=== PATIENT | male | born 1965 | race Caucasian/White ===

== ENCOUNTER 2022-03-22 09:44 | Observation (INO) | payer BC, SELFPAY ==
[2022-03-22] VITALS (14 sets, daily range): BP systolic 104–126; BP diastolic 56–78; PULSE 59–134; RESP 12–22; TEMP 36.3–36.4; O2SAT 96–99; BMI 30.2
--- NOTE | ~2022-03-22 | XR_ITS ---
XR chest 1V portable DATE: 03/22/2022 10:37 INDICATION: Syncope today. Atrial fibrillation. TECHNIQUE: Portable AP chest views on 03/22/2022 at 1031) 1032 hours COMPARISON: None FINDINGS: There is pulmonary vascular redistribution which may indicate mild pulmonary venous hyperte nsion. Heart size appears within normal range. No pulmonary infiltrate or consolidation, pleural effu sara or pulmonary vascular congestion or pneumothorax is detected. IMPRESSION: Pulmonary vascular redistribution which may indicate mild pulmonary venous hypertension Otherwise no active cardiopulmonary disease Reviewed, dictated and finalized at location A. MODEL
--- NOTE | 2022-03-22 09:45 | ECG_ITS ---
Measurements Intervals [place] Rate: 150 P: [place]: 0 QRS: -41 QRSD: 113 T: 55 QT: 297 QTc: 470 Interpretive Statements ATRIAL FIBRILLATION WITH RAPID VENTRICULAR RESPONSE LEFT AXIS DEVIATION INTRAVENTRICULAR CONDUCTION DELAY CANNOT RULE OUT SEPTAL INFARCT, AGE INDETERMINATE ABNORMAL ECG NO PREVIOUS ECG AVAILABLE FOR COMPARISON Electronically Signed On 03-22-2022 12:11:57 SENIOR GL ACCOUNTANT by Anupam Arias D.O.
--- NOTE | 2022-03-22 09:55 | ED.SYNCOPE ---
HPI - Syncope General Chief Complaint: Syncope Stated Complaint: syncope palpitations Time Seen by Provider: 03/22/22 09:54 Source: patient Limitations: no limitations History of Present Illness HPI narrative: Patient is 57 years old white male presents with sudden onset of dizziness, lightheadedness, near syncope, palpitation and shortness of breath at the end of 1 hour workout. Patient been working out every other day for the last 3 months. Today is not different than before. History of hypertension, hyperlipidemia, currently on aspirin. He denies any history of smoking, drinking or using drugs. Patient also denies any headache or focal neurodeficit. Related Data Allergies Allergy/AdvReac Type Severity Reaction Status Date / Time No Known Allergies Allergy Verified 03/22/22 10:15 Review of Systems Review of Systems: All systems reviewed & are unremarkable except as noted in HPI and below Exam Narrative: General appearance: Well-developed, well-nourished Skin: Normal color Head: Normocephalic, nontraumatic Eyes: Clear conjunctiva ENT: Oropharynx normal, ears normal, nose normal Neck: Supple, nontender Chest and respiratory: Airway patent, no respiratory distress, no accessory muscle use Heart: Irregular irregularity, tachycardia Abdomen: Soft, nontender, no organomegaly, quiet bowel sounds Vascular: Normal peripheral pulses, normal capillary refill. Musculoskeletal: Normal range of motion, nontender back Neurologic: Alert and oriented ?3, UTILIZATION REVIEWER is normal as tested, no gross motor deficit Course Vital Signs Vital signs: Vital Signs Pulse Rate 98 03/22/22 10:05 Respiratory Rate 22 H 03/22/22 10:05 Pulse Rate 134 H 03/22/22 11:34 Respiratory Rate 18 03/22/22 11:34 Blood Pressure 112/78 03/22/22 11:34 Pulse Oximetry 99 03/22/22 11:34 MDM - Syncope Differential Diagnosis Differential diagnosis: Likely syncope due to orthostatic hypotension, dehydration and other (Tachyarrhythmia, hypothyroidism) Lab Data Result diagrams: 03/22/22 10:15 03/22/22 10:14 Labs: Lab Results 03/22/22 03/22/22 03/22/22 Range/Units 10:14 10:14 10:14 WBC (4.5-10.0) K/mm3 RBC (4.6-6.20) M/mm3 Hgb (14.0-18.0) g/dL Hct (42.0-52.0) % MCV (80-100) fl MCH (26-34) pg MCHC (32-36) g/dl RDW (11.5-14.5) % Plt Count (150-375) k/mm3 MPV (7.4-10.4) fl Immature Gran % (Auto) (0-0.5) % Neut % (Auto) (45.5-73.1) % Lymph % (Auto) (18.3-44.2) % [place] % (Auto) (2.6-8.5) % Eos % (Auto) (0-4.4) % Baso % (Auto) (0.2-1.2) % Lymph # (Auto) (0.9-3.2) K/mm3 [place] # (Auto) (0.1-0.6) K/mm3 Eos # (Auto) (0-0.3) K/mm3 Baso # (Auto) (0.0-0.1) K/mm3 Abs Immat Gran (auto) (0.00-0.031) K/mm3 Absolute Neuts (auto) (1.3-6.7) K/mm3 Absolute Nucleated RBC (0.0-0.012) K/mm3 Nucleated RBC % (0.0-0.2) % PT 13.0 (11.1-14.7) Seconds INR 1.0 APTT 27.1 (22.3-36.8) SECONDS Sodium 140 (137-145) mmol/L Potassium 4.3 (3.4-5.0) mmol/L Chloride 101 (98-107) mmol/L Carbon Dioxide 23 (22-30) mmol/L Anion Gap 16 (8-16) mmol/L BUN 28 H (9-20) mg/dL Creatinine 1.30 (0.7-1.3) mg/dL Estim Creat Clear Calc Not Reportable Estimated GFR 57 L (59 - ) Glucose 123 H (65-110) mg/dL Calcium 10.0 (8.4-10.2) mg/dL Total Bilirubin 0.8 (0.2-1.3) mg/dL AST 44 (17-59) U/L ALT 44 (6-50) U/L Alkaline Phosphatase 139 H (38-126) U/L Troponin I (0.000-0.034) ng/mL NT-Pro-B Natriuret Pep 34 (5-100) pg/mL Total Protein 9.0 H (6.3-8.2) g/dL [place]
[2022-03-22] MEDS: dilTIAZem HCl INJ 25 MG/5 ML VIAL 10 MG IV PUSH (10:19)
[2022-03-22] MEDS: dilTIAZem 100 MG/100 ML 100 MG/100 ML BAG IV CONT (10:22)
[2022-03-22 10:44] LABS: Basophils Absolute Auto 0.1 K/mm3 (0.0-0.1); Eosinophils Absolute Auto 0.1 K/mm3 (0-0.3); Eosinophils Percent Auto 1.5 % (0-4.4); Hematocrit 48.9 % (42.0-52.0); Hemoglobin 16.8 g/dL (14.0-18.0); Immature Granulocyte Absolute 0.01 K/mm3 (0.00-0.031); Immature Granulocyte Percent A 0.2 % (0-0.5); Lymphocytes Percent Auto 24.8 % (18.3-44.2); Mean Corpuscular HGB Conc 34.4 g/dl (32-36); Mean Corpuscular Hemoglobin 32.1 pg (26-34); Mean Corpuscular Volume 93.5 fl (80-100); Mean Platelet Volume 8.6 fl (7.4-10.4); Monocytes Absolute Auto 0.5 K/mm3 (0.1-0.6); Monocytes Percent Auto 7.9 % (2.6-8.5); Neutrophils Absolute Auto 3.9 K/mm3 (1.3-6.7); Neutrophils Percent Auto 64.6 % (45.5-73.1); Platelet Count Result 208 k/mm3 (150-375); Red Blood Count 5.23 M/mm3 (4.6-6.20); Red Cell Distribution Width 12.4 % (11.5-14.5); White Blood Count 6.1 K/mm3 (4.5-10.0)
[2022-03-22 10:45] LABS: Partial Thromboplastin Time 27.1 SECONDS (22.3-36.8)
[2022-03-22 10:48] LABS: Alanine Aminotransferase 44 U/L (6-50); Albumin Level 5.2 g/dL (3.5-5.1); Alkaline Phosphatase 139 U/L (38-126); Anion Gap 16 mmol/L (8-16); Aspartate Amino Transferase 44 U/L (17-59); Bilirubin,Total 0.8 mg/dL (0.2-1.3); Blood Urea Nitrogen 28 mg/dL (9-20); Carbon Dioxide 23 mmol/L (22-30); Chloride 101 mmol/L (98-107); Estimated Glomerular Filt Rate 57; Glucose 123 mg/dL (65-110); Potassium 4.3 mmol/L (3.4-5.0); Sodium 140 mmol/L (137-145)
[2022-03-22 10:55] LABS: NT Pro B Type Natriuretic Pept 34 pg/mL (5-100)
[2022-03-22 11:10] LABS: Troponin I < 0.012 ng/mL (0.000-0.034)
[2022-03-22 11:22] LABS: Appearance Urine Clear (Clear); Bilirubin Urine Negative (Negative); Blood Urine Negative (Negative); Color Urine Yellow (Yellow); Glucose Urine UA Negative (Negative); Ketones Urine 1+ mg/dL (Negative); Leukocyte Esterase Ur Negative LEU/UL (Negative); Nitrate Urine Negative (Negative); Protein Urine 2+ mg/dL (Negative); Specific Grav Ur 1.025 (1.001-1.035); Urobilinogen Urine 0.2 mg/dL (<2.0); pH Urine 5.5 (5.0-9.0)
[2022-03-22 11:38] LABS: Mucus Urine Rare /lpf; Squamous Epithelial Cell Urine Rare /hpf (Few)
[2022-03-22 11:45] LABS: Add Urine Microscopic? YES
[2022-03-22] MEDS: ENOXAPARIN 100 MG/ML SYRINGE SUB-Q ×2 (11:56→21:23)
--- NOTE | 2022-03-22 14:00 | PM.IMHP ---
H&P: HPI History of Present Illness Date/Time: 03/22/22 14:00 Chief Complaint: Palpitations. Narrative: This is a very pleasant 57-year-old male with hypertension and dyslipidemia who presented to the emergency department from home for evaluation of palpitations. He exercises regularly and this morning he completed his usual routine of walking to the gym, lifting weights, and walking home. His workout was unremarkable however he does admit that he was feeling a bit more fatigued today than usual. On the 20 minute walk home he had a brief period of time where he began to feel weak, lightheaded, and his vision seemed to be going to dim. He stopped and rested for a few seconds, his symptoms improved, and he continued his walk home. Once he got home he checked his pulse and reports that it was quite variable and at that time he began to experience palpitations. On arrival to the ER he was found to be in rapid atrial fibrillation for which he was started on a diltiazem drip; he has since converted back to a normal sinus rhythm. He estimates that he was in AFib for approximately 5 hours. About 3 to 4 years ago he had a similar episode for which he was evaluated at an ER just outside of [place]. His symptoms did not last long and he was not noted to be in a cardiac dysrhythmia at that time. Everything checked out and he was discharged home. He had a stress test done as an outpatient which was abnormal and prompted a cardiac catheterization which was normal, per patient report. He has not had any issues since that time. Prior to today he has no known history of atrial fibrillation. He does not drink caffeine or alcohol on a daily basis and denies drinking pre workout and energy drinks. He has no concerns for sleep apnea though he does nap at times. No known history of thyroid disease. He has not had exertional chest pain or shortness of breath. Review of Systems Review of Systems: Twelve systems were reviewed and are negative except for as per HPI. [facility] Past Medical History Medical History (Updated 03/22/22 @ 21:26 by Sol Dumont PA-C) Dyslipidemia Hypertension Surgical History Surgical History (Updated 03/22/22 @ 21:26 by Sol Dumont PA-C) History of cardiac catheterization Clear cardiac catheterization following abnormal stress test. Family History Family History Mother CAD (coronary artery disease) Father S/P CABG x 3 S/P internal cardiac defibrillator procedure Social History Social History (Updated 03/22/22 @ 21:27 by Sol Dumont PA-C) Social History: Surrogate medical decision maker: Beth Bergman, . Code status: Full code. Smoking status: Never smoker Alcohol intake: never Substance use: never Lack of Transportation: No Lack of Food: Never True Current Housing: I Have Housing Concerned About Future Housing: No Difficulty Paying Gas/Electric Bills: No Difficulty Paying for Meds: No Currently Unemployed: No Education: Master's Degree or Higher Difficulty w/ Childcare or Family Care: YES Additional living arrangements comments: The patient is recently moved to the area from just outside of [place]. Additional occupation/education comments: Retired software. Spiritual care concerns: No Meds Home Medications and Allergies Home Medications Medication Instructions Recorded Confirmed Type aspirin 81 mg capsule 81 mg PO DAILY 03/22/22 03/22/22 History lisinopril 20 mg tablet 20 mg PO DAILY 03/22/22 03/22/22 History rosuvastatin 40 mg tablet 40 mg PO HS 03/22/22 03/22/22 History Allergies Allergy/AdvReac Type Severity Reaction Status Date / Time No Known Allergies Allergy Verified 03/22/22 10:15 Vital Signs Vital Signs - 24 hr 03/22/22 10:22 03/22/22 10:41 03/22/22 10:05 Pulse Rate 118 H 109 H 98 Respiratory Rate 18 22 H Blood Pressure 116/68 116/68 Pulse Oximetry
--- NOTE | 2022-03-22 14:11 | ECHO_ITS ---
Patient Info Name: Tal Bergman Age: 57 years : 1965 Gender: Male Ht: 73 in Wt: 220 lbs BSA: 2.29 m2 HR: 65 bpm BP: 106 / 75 mmHg Exam Date: 03/22/2022 4:27 PM Exam Location: [facility] Patient Status: Outpatient Admit Date: 03/22/2022 Staff Ordering Physician: Sol Dumont PA-C Mowing Machine Operator: Sourav Rivera RDCS Attending Provider: Chino Winslow MD Referring Physician: Julia FINE; Exam Type: CA echo doppler color flow Study Info Indications - atrial fibrillation Complete two-dimensional, color flow and Doppler transthoracic echocardiogram is performed. Summary 1. Complete two-dimensional, color flow and Doppler transthoracic echocardiogram is performed. 2. Left ventricular chamber dimension is normal. 3. Left ventricular systolic function is normal, estimated at 55-60%. 4. The left ventricular diastolic function is grade I diastolic dysfunction. 5. E/e' 5 is not elevated. 6. Left atrial chamber dimension is mildly enlarged. 7. There is mild aortic valve sclerosis. 8. There is mild mitral valve regurgitation. Left Ventricle E/e' 5 is not elevated. Left ventricular chamber dimension is normal. Left ventricular systolic function is normal, estimated at 55-60%. The left ventricular diastolic function is grade I diastolic dysfunction. Right Ventricle Right ventricular systolic function is normal and with normal TAPSE 2.0 cm. Right ventricular chamber dimension is normal. Left Atria Left atrial chamber dimension is mildly enlarged. Right Atria Right atrial chamber dimension is normal. Aortic Valve The aortic valve is trileaflet. There is mild aortic valve sclerosis. There is no aortic valve stenosis. There is no aortic valve regurgitation. Pulmonic Valve There is no pulmonic regurgitation. Mitral Valve There is no mitral valve stenosis. There is mild mitral valve regurgitation. Tricuspid Valve There is no tricuspid valve regurgitation. Pericardium/Pleural There is no pericardial effusion. Inferior Vena Cava Normal inferior vena cava with >50% collapse upon inspiration consistent with normal right atrial pressure, 5 mmHg. Aorta The aortic root size at the sinus of Valsalva is normal. Left Ventricular Outflow Tract Name Value Normal LVOT 2D LVOT Diameter 2.2 cm LVOT Doppler LVOT Peak Gradient 7 mmHg LVOT Mean Gradient 4 mmHg LVOT VTI 27 cm LVOT VTI/AV VTI Ratio 0.9 LVOT Stroke Volume 105 ml LVOT CO 6.9 l/min LVOT CI 3.0 l/min/m2 Mitral Valve Name Value Normal MV Doppler MV Peak Gradient 2 mmHg MV Mean Gradient 1 mmH
--- NOTE | 2022-03-22 14:21 | ADMGEN ---
This patient, Tal Bergman, was admitted to IMU Room 209-01 at 1411. Patient/family oriented to hospital policies and general routines including ID bracelet, bed and alarms, visiting hours, pain management, procedures, bathroom and other care routines, personal items, smoking policy, room service/diet, and visiting hours. Information on how to activate the Rapid Response Team has been discussed. Patient/Family are encouraged to report perceived risks to care and to ask questions if they do not understand what they are told or what they should do.
--- NOTE | 2022-03-22 14:56 | PM.CNCAR ---
Assessment and Plan Assessment and plan (1) Atrial fibrillation with rapid ventricular response: Code(s): I48.91 - Unspecified atrial fibrillation Status: Acute Assessment and Plan: New onset. Could be due to anxiety or over stressed from physical activity. Back in sinus rhythm. [id number] 1. On Lovenox now, but may go home on aspirin EC 325 mg daily. Start Toprol XL 25 mg daily to decrease risk of recurrence. Check echo for any pathology including left atrial size. Check TSH. If echo is OK, may d/c home and f/u with me in 1-2 weeks. (2) Hypertension: Code(s): I10 - Essential (primary) hypertension Status: Acute Assessment and Plan: Stable. If Toprol would decrease BP too much, then decrease Lisinopril dose to 5 mg daily. (3) Dyslipidemia: Code(s): E78.5 - Hyperlipidemia, unspecified Status: Acute Assessment and Plan: On Rosuvastatin. History of Present Illness History of Present Illness Consult date/time: 03/22/22 14:56 Reason For Visit: new onset a fib with rvr, near syncope Narrative: 57 yr old man presented to ER with palpitations. He has a history of hypertension and dyslipidemia. He exercises regularly with some vigorous activity. This morning after working out at 7 am he felt dizziness, sob, palpitations. He came to ER and noted to be in rapid atrial fibrillation. He was given Diltiazem and has since converted back to sinus rhythm. It lasted about 5 hours. He does not believe he has RICH but does take a nap at times. Denies chest pain, orthopnea, PND, edema. Review of Systems Review of Systems: All systems reviewed & are unremarkable except as noted in HPI and below Constitutional: Constitutional: Reports as per HPI, Denies chills and Denies fever(s) Cardiovascular: Cardiovascular: Reports as per HPI, Reports irregular heart rhythm, Denies leg edema and Reports lightheadedness Respiratory: Respiratory: Reports as per HPI and Reports dyspnea Gastrointestinal: Gastrointestinal: Reports as per HPI and Denies abdominal pain Genitourinary: Genitourinary: Reports as per HPI and Denies dysuria Musculoskeletal: Musculoskeletal: Reports as per HPI Neurologic: Reports as per HPI, Reports dizziness and Denies syncope [facility] Family History Family History (Updated 03/22/22 @ 14:26 by Alexandra Plaza RNLP) Mother CAD (coronary artery disease) Father S/P CABG x 3 S/P internal cardiac defibrillator procedure Social History Social History Smoking status: Never smoker Lack of Transportation: No Lack of Food: Never True Current Housing: I Have Housing Concerned About Future Housing: No Difficulty Paying Gas/Electric Bills: No Difficulty Paying for Meds: No Currently Unemployed: No Education: Master's Degree or Higher Difficulty w/ Childcare or Family Care: YES Spiritual care concerns: No Meds Home Medications and Allergies Home Medications Medication Instructions Recorded Confirmed Type aspirin 81 mg capsule 81 mg PO DAILY 03/22/22 03/22/22 History lisinopril 20 mg tablet 20 mg PO DAILY 03/22/22 03/22/22 History rosuvastatin 40 mg tablet 40 mg PO HS 03/22/22 03/22/22 History Allergies Allergy/AdvReac Type Severity Reaction Status Date / Time No Known Allergies Allergy Verified 03/22/22 10:15 Vital Signs Vital Signs - 24 hr 03/22/22 10:22 03/22/22 10:41 03/22/22 10:05 Pulse Rate 118 H 109 H 98 Respiratory Rate 18 22 H Blood Pressure 116/68 116/68 Pulse Oximetry 97 03/22/22 11:00 03/22/22 11:01 03/22/22 11:15 Pulse Rate 93 108 H 95 Respiratory Rate 20 13 15 Blood Pressure 104/56 L Pulse Oximetry 03/22/22 11:34 03/22/22 13:00 Pulse Rate 134 H 100 Respiratory Rate 18 12 Blood Pressure 112/78 106/75 Pulse Oximetry 99 Exam Const: General: cooperative, healthy appearing and comfortable Resp: Auscultation: clear to auscultat
[2022-03-22 16:34] LABS: Troponin I 0.021 ng/mL (0.000-0.034)
[2022-03-22] MEDS: ROSUVASTATIN 10 MG TABLET 40 MG PO (21:22)
--- NOTE | 2022-03-22 23:12 | PCRCNOTE ---
RT explained to pt that DR had ordered a sleep study for the evening. Upon explaining procedure, pt stated that he did not believe he has sleep apnea and does not need to participate in study. RN notified.
[2022-03-23] VITALS (9 sets, daily range): BP systolic 109–133; BP diastolic 66–79; PULSE 53–75; RESP 18–20; TEMP 36.4–36.7; O2SAT 97–99
--- NOTE | 2022-03-23 07:55 | PM.PNCARD ---
Progress Note: A&P Assessment and Plan (1) Atrial fibrillation with rapid ventricular response: Code(s): I48.91 - Unspecified atrial fibrillation Status: Acute Assessment and Plan: New onset. Could be due to anxiety or over stressed from physical activity. Back in sinus rhythm. [id number] 1. Start aspirin EC 325 mg daily. 03/22/22 Echo:EF 55-60%, grade I diastolic dysfunction (E/e' 5), mild LAE, mild MR. Start Toprol XL 12.5 mg daily to decrease risk of recurrence. May d/c home and f/u with me in 1-2 weeks. (2) Hypertension: Code(s): I10 - Essential (primary) hypertension Status: Acute Assessment and Plan: Stable. Due to starting Toprol XL, decrease Lisinopril dose to 5 mg daily. (3) Dyslipidemia: Code(s): E78.5 - Hyperlipidemia, unspecified Status: Acute Assessment and Plan: On Rosuvastatin. Subjective Date/time seen: 03/23/22 07:55 Interval history: He feels great. No chest pain or sob. Exam Const: General: cooperative, healthy appearing and comfortable Orientation/consciousness: oriented to person, oriented to place and oriented to time Resp: Auscultation: clear to auscultation bilaterally, no crackles, no rales, no rhonchi and no wheezes Cardio: Rate: regular rate Heart sounds: no murmurs Peripheral pulses: dorsalis pedis present Neuro: General: oriented to person, oriented to place and oriented to time Extrem: Right lower extremity: no edema Left lower extremity: no edema Objective Data Vital Signs Vital Signs: Vital Signs - 24 hr 03/22/22 10:22 03/22/22 10:41 03/22/22 10:05 Temperature Pulse Rate 118 H 109 H 98 Respiratory Rate 18 22 H Blood Pressure 116/68 116/68 Pulse Oximetry 97 Oxygen Delivery 03/22/22 11:00 03/22/22 11:01 03/22/22 11:15 Temperature Pulse Rate 93 108 H 95 Respiratory Rate 20 13 15 Blood Pressure 104/56 L Pulse Oximetry Oxygen Delivery 03/22/22 11:34 03/22/22 13:00 03/22/22 14:57 Temperature 97.3 F L Pulse Rate 134 H 100 69 Respiratory Rate 18 12 16 Blood Pressure 112/78 106/75 118/76 Pulse Oximetry 99 98 Oxygen Delivery 03/22/22 16:00 03/22/22 16:00 03/22/22 16:00 Temperature 97.5 F L Pulse Rate 66 67 Respiratory Rate 16 Blood Pressure 114/76 Pulse Oximetry 99 Oxygen Delivery Room Air 03/22/22 18:00 03/22/22 20:00 03/22/22 20:00 Temperature 97.6 F Pulse Rate 66 70 61 Respiratory Rate 16 Blood Pressure 126/71 Pulse Oximetry 96 Oxygen Delivery 03/22/22 22:00 03/22/22 23:12 03/23/22 00:00 Temperature 97.6 F Pulse Rate 59 L 58 L Respiratory Rate 18 Blood Pressure 109/66 Pulse Oximetry 97 98 Oxygen Delivery Room Air 03/23/22 00:00 03/23/22 00:00 03/23/22 02:00 Temperature Pulse Rate 60 58 L 56 L Respiratory Rate 18 Blood Pressure Pulse Oximetry 98 Oxygen Delivery Room Air 03/23/22 04:00 03/23/22 04:00 03/23/22 04:00 Temperature Pulse Rate 56 L 56 L 54 L Respiratory Rate 18 Blood Pressure Pulse Oximetry 98 Oxygen Delivery Room Air 03/23/22 05:52 03/23/22 05:54 03/23/22 05:56 Temperature 97.6 F Pulse Rate 53 L 53 L 62 Respiratory Rate 18 Blood Pressure 114/75 Pulse Oximetry 97 Oxygen Delivery 03/23/22 07:52 Temperature 98.1 F Pulse Rate 63 Respiratory Rate 20 Blood Pressure 133/79 Pulse Oximetry 99 Oxygen Delivery Intake/Output Intake/Output: Intake & Output 03/20/22 03/21/22 03/22/22 03/23/22 23:59 23:59 23:59 23:59 Intake Total 540 900 Balance 540 900 Meds/Results Medications: Active Medications Generic Name Dose Route Start Last Admin Trade Name Freq PRN Reason Stop Dose Admin Acetaminophen 650 mg 03/22/22 12:51 Acetaminophen 325 Mg Tablet PO Q4H PRN Mild Pain (1-3) or Fever Aspirin 325 mg 03/23/22 09:00 Aspirin 325 Mg Enteric Tablet PO [facility] Enoxaparin Sodium 40 mg 03/23/22 09:00 En
[2022-03-23] MEDS: ASPIRIN 325 MG ENTERIC TABLET PO (08:30)
[2022-03-23] MEDS: lisinopriL 5 MG TABLET PO (08:31)
[2022-03-23] MEDS: METOPROLOL SUCCINATE EXT REL 12.5 MG TABCR PO (08:31)
--- NOTE | 2022-03-23 10:26 | PM.DS ---
DS: Admitting Diagnosis Discharge Date 03/23/2022 Admitting Diagnosis AFib with RVR DS: Discharge Diagnosis Discharge Diagnosis (1) Atrial fibrillation with rapid ventricular response: Code(s): I48.91 - Unspecified atrial fibrillation Status: Acute (2) Near syncope: Code(s): R55 - Syncope and collapse Status: Acute (3) Hypertension: Code(s): I10 - Essential (primary) hypertension Status: Acute (4) Dyslipidemia: Code(s): E78.5 - Hyperlipidemia, unspecified Status: Acute DS: Summary Hospital Course Hospital Course: # New onset atrial fibrillation although it sounds as though he may have had a brief episode several years ago. Precipitating etiology not clear at this time. There was no murmur noted on exam.? He denies concerns for sleep apnea though he does nap on occasion. He does not drink much in the way of alcohol or caffeine. 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 He is now back into a normal sinus rhythm. After pain was consulted. Chads Vasc score is 1. Started on aspirin 325 mg daily. And oral metoprolol. Echocardiogram was ordered which short normal ejection fraction with no significant valvular abnormality. Apnea link was ordered however was refused by the patient # Near syncope (Acute) Likely related to above.? Symptoms were brief and he has not had similar symptoms with physical activity. PE unlikely. #Hypertension (Acute) Blood pressures have been stable.? We will need to monitor these closely as he is being started on metoprolol in addition to his usual lisinopril 20 mg daily to help prevent recurrence of atrial fibrillation. Lower lisinopril to 5 mg daily due to blood pressure low normal and starting metoprolol as well # dyslipidemia: Continue statin; LFTs within normal limits. Time Spent with Patient Time attestation: Total time spent providing and/or coordinating discharge services: 30 minutes Exam Narrative: GENERAL: The patient is well developed, not in acute distress HEENT: Nonicteric sclerae, PERRLA, EOMI. Oropharynx clear. Moist mucous membranes. Conjunctivae appear well perfused. CHEST: Chest wall is nontender. HEART: Regular rate and rhythm without murmur, rubs, or gallops LUNGS: Clear to auscultation bilaterally. no respiratory distress ABDOMEN: Soft, positive bowel sounds, non-tender, no organomegaly. SKIN: No rash, no excessive bruising, petechiae, or purpura. NEUROLOGIC: Cranial nerves II-XII intact, alert and oriented x 3, no gross motor deficits EXTREMITIES: no edema, cyanosis or clubbing DS: Data Data Completed and Pending Completed studies during hospitalization: Exam Type: ? ? CA echo doppler color flow Study Info Indications ?? ? - atrial fibrillation Complete two-dimensional, color flow and Doppler transthoracic echocardiogram is performed. Account #: ? ? [id number] Summary ? 1. Complete two-dimensional, color flow and Doppler transthoracic echocardiogram is performed. ? 2. Left ventricular chamber dimension is normal. ? 3. Left ventricular systolic function is normal, estimated at 55-60%. ? 4. The left ventricular diastolic function is grade I diastolic dysfunction. ? 5. E/e' 5 is not elevated. ? 6. Left atrial chamber dimension is mildly enlarged. ? 7. There is mild aortic valve sclerosis. ? 8. There is mild mitral valve regurgitation. Left Ventricle ? E/e' 5 is not elevated. ? Left ventricular chamber dimension is normal. ? Left ventricular systolic function is normal, estimated at 55-60%. ? The left ventricular diastolic function is grade I diastolic dysfunction. Right Ventricle ? Right ventricular systolic function is normal and with normal TAPSE 2.0 cm. ? Right ventricular chamber dimension is normal. Left Atria ? Left atrial chamber dimension is mildly enlarged. Right Atria ? Right atrial chamb
== END 2022-03-23 10:47 | disposition home or self-care (01) ==
LOC: ANHED 12:27 → ANHIMU 13:39
PROVIDERS: Internal Medicine Cardiovascular Disease; Admitting Provider Internal Medicine; Emergency Provider Emergency Medicine; Visit Provider Internal Medicine
DX: I48.91 Unspecified atrial fibrillation (principal); R55 Syncope and collapse; I11.9 Hypertensive heart disease without heart failure; E78.5 Hyperlipidemia, unspecified; R00.2 Palpitations; R94.31 Abnormal electrocardiogram [ECG] [EKG]; R42 Dizziness and giddiness; R06.02 Shortness of breath; Z79.82 Long term (current) use of aspirin; Z82.49 Family history of ischemic heart disease and other diseases of the circulatory system
CPT/HCPCS: 36415; 71045; 80053; 81001; 83880; 84443; 84484; 85025; 85610; 85730; 93005; 93306; 96365; 96366; 96372; 99285; A9270; G0378; J1650

== ENCOUNTER 2022-04-01 11:33 | Emergency (ER) | payer BC, SELFPAY ==
[2022-04-01] VITALS (12 sets, daily range): BP systolic 131–155; BP diastolic 72–90; PULSE 62–90; RESP 11–21; TEMP 36.9; O2SAT 97–99
--- NOTE | ~2022-04-01 | XR_ITS ---
XR chest 2V DATE: 04/01/2022 12:19 INDICATION: New diagnosis of atrial fibrillation. Tachycardia. TECHNIQUE: PA and lateral views COMPARISON: 03/22/2022 portable AP chest FINDINGS: Normal heart size. No hilar or mediastinal enlargement. No pulmonary infiltrate or consolid ation, pleural effusion or pulmonary vascular congestion or pneumothorax. Included skeletal structures are unremarkable. IMPRESSION: No active cardiopulmonary disease Reviewed, dictated and finalized at location A. L SHOP SUPERVISOR
--- NOTE | 2022-04-01 11:33 | ECG_ITS ---
Measurements Intervals [place] Rate: 85 P: 33 IN: 173 QRS: -29 QRSD: 129 T: 35 QT: 391 QTc: 465 Interpretive Statements SINUS RHYTHM INTRAVENTRICULAR CONDUCTION DELAY CANNOT RULE OUT SEPTAL INFARCT, AGE INDETERMINATE BASELINE ARTIFACT- I, III, AVL ABNORMAL ECG COMPARED TO ECG 03/22/2022 09:51:32 SINUS RHYTHM NOW PRESENT Electronically Signed On 04-01-2022 11:38:36 OXIDATION ENGINEER by Anupam Arias D.O.
[2022-04-01 11:54] LABS: Basophils Absolute Auto 0.1 K/mm3 (0.0-0.1); Basophils Percent Auto 0.7 % (0.2-1.2); Eosinophils Absolute Auto 0.2 K/mm3 (0-0.3); Eosinophils Percent Auto 1.8 % (0-4.4); Hematocrit 46.8 % (42.0-52.0); Hemoglobin 15.4 g/dL (14.0-18.0); Immature Granulocyte Absolute 0.03 K/mm3 (0.00-0.031); Immature Granulocyte Percent A 0.4 % (0-0.5); Lymphocytes Absolute Auto 2.02 K/mm3 (0.9-3.2); Lymphocytes Percent Auto 24.4 % (18.3-44.2); Mean Corpuscular HGB Conc 32.9 g/dl (32-36); Mean Corpuscular Hemoglobin 32.3 pg (26-34); Mean Corpuscular Volume 98.1 fl (80-100); Mean Platelet Volume 8.7 fl (7.4-10.4); Monocytes Absolute Auto 0.7 K/mm3 (0.1-0.6); Monocytes Percent Auto 8.3 % (2.6-8.5); Neutrophils Absolute Auto 5.3 K/mm3 (1.3-6.7); Neutrophils Percent Auto 64.4 % (45.5-73.1); Platelet Count Result 195 k/mm3 (150-375); Red Blood Count 4.77 M/mm3 (4.6-6.20); Red Cell Distribution Width 12.5 % (11.5-14.5); White Blood Count 8.3 K/mm3 (4.5-10.0)
[2022-04-01 12:04] LABS: Alanine Aminotransferase 52 U/L (6-50); Albumin Level 4.9 g/dL (3.5-5.1); Alkaline Phosphatase 113 U/L (38-126); Anion Gap 11 mmol/L (8-16); Aspartate Amino Transferase 42 U/L (17-59); Bilirubin,Total 0.7 mg/dL (0.2-1.3); Blood Urea Nitrogen 24 mg/dL (9-20); Calcium 9.5 mg/dL (8.4-10.2); Carbon Dioxide 26 mmol/L (22-30); Chloride 102 mmol/L (98-107); Estimated CRCL calculation 90 ml/min; Estimated Glomerular Filt Rate > 60; Glucose 129 mg/dL (65-110); Lipase 141 U/L (23-300); Potassium 4.1 mmol/L (3.4-5.0); Sodium 139 mmol/L (137-145)
[2022-04-01 12:05] LABS: Prothrombin Time 12.6 Seconds (11.1-14.7)
[2022-04-01 12:06] LABS: Partial Thromboplastin Time 25.6 SECONDS (22.3-36.8)
[2022-04-01 12:16] LABS: Troponin I < 0.012 ng/mL (0.000-0.034)
--- NOTE | 2022-04-01 12:45 | ED.ARRPALP ---
HPI - Arrhythmia/Palpitations General Chief Complaint: Arrhythmia/Palpitations Stated Complaint: afib Time Seen by Provider: 04/01/22 11:40 History of Present Illness HPI narrative: Patient is a 57-year-old male who presents ER with concerns for being in atrial fibrillation. Was given new diagnosis of atrial fibrillation a little over a week ago. He is being seen by Dr. Umaña. He is on metoprolol. Reports he felt a little flushed in his leg and then starting about how he had been hospitalized and then felt his heart was racing. His watch said it was in the 110s to 20s. It only lasted for couple minutes and got better after he told his family he was feeling little off. No chest pain or pressure. He was mildly shortness of breath at that time. Patient does report history of anxiety and that it may have been anxiety attack as well. Related Data Home Medications Medication Instructions Recorded Confirmed rosuvastatin 40 mg tablet 40 mg PO HS 03/22/22 03/22/22 Allergies Allergy/AdvReac Type Severity Reaction Status Date / Time No Known Allergies Allergy Verified 03/22/22 10:15 Review of Systems Review of Systems: All systems reviewed & are unremarkable except as noted in HPI and below Constitutional: Constitutional: Denies chills and Denies fever(s) ENT: Denies nasal congestion and Denies sore throat Cardiovascular: Cardiovascular: Denies chest pain, Reports rapid heart rate and Denies radiating jaw, neck or arm pain Respiratory: Respiratory: Denies cough, Reports dyspnea and Denies wheezing Gastrointestinal: Gastrointestinal: Denies abdominal pain, Denies nausea and Denies vomiting Neurologic: Denies syncope and Denies headache(s) Psychiatric: Psychiatric: Reports anxiety PMFSH Past Medical History Medical History (Updated 04/01/22 @ 12:48 by Isiah Hughes MD) Dyslipidemia Hypertension Surgical History Surgical History (Updated 03/22/22 @ 21:26 by Sol Dumont PA-C) History of cardiac catheterization Clear cardiac catheterization following abnormal stress test. Family History Family History Mother CAD (coronary artery disease) Father S/P CABG x 3 S/P internal cardiac defibrillator procedure Social History Social History (Updated 03/22/22 @ 21:27 by Sol Dumont PA-C) Social History: Surrogate medical decision maker: Beth Bergman, . Code status: Full code. Smoking status: Never smoker Alcohol intake: never Substance use: never Lack of Transportation: No Lack of Food: Never True Current Housing: I Have Housing Concerned About Future Housing: No Difficulty Paying Gas/Electric Bills: No Difficulty Paying for Meds: No Currently Unemployed: No Education: Master's Degree or Higher Difficulty w/ Childcare or Family Care: YES Additional living arrangements comments: The patient is recently moved to the area from just outside of [place]. 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 HEAD: Normocephalic, atraumatic. CHEST: Clear to auscultation. No respiratory distress. HEART: Regular rate and rhythm. Normal peripheral pulses. ABDOMEN: Soft, nontender, nondistended. EXTREMITIES: Normal range of motion. No edema. SKIN: Warm, dry, no rash. NEURO: Alert and oriented x3. PSYCH: Normal mood and affect. Course Course Emergency Course: Patient resting comfortably. No arrhythmia on EKG or on cardiac monitoring. Labs unremarkable. Suspect very brief episode of A. fib versus what was more likely an anxiety attack. Patient feels comfortable discharge home. Has follow-up this week with Dr. Arias. Vital Signs Vital signs: Vital Signs Temperature 98.5 F 04/01/22 11:36 Pulse Rate 86 04/01/22 11:36 Respiratory Rate 16 04/01/22 11:36 B
== END 2022-04-01 13:35 | disposition home or self-care (01) ==
PROVIDERS: Emergency Provider Emergency Medicine
DX: R00.2 Palpitations (principal); F41.9 Anxiety disorder, unspecified; E78.5 Hyperlipidemia, unspecified; I10 Essential (primary) hypertension; I48.91 Unspecified atrial fibrillation; I45.9 Conduction disorder, unspecified; R94.31 Abnormal electrocardiogram [ECG] [EKG]
CPT/HCPCS: 36415; 71046; 80053; 83690; 84484; 85025; 85610; 85730; 93005; 99284

== ENCOUNTER 2022-05-19 10:45 | Emergency (ER) | payer BC, SELFPAY ==
[2022-05-19] VITALS (23 sets, daily range): BP systolic 114–134; BP diastolic 78–95; PULSE 79–145; RESP 11–19; TEMP 36.8; O2SAT 96–99
--- NOTE | ~2022-05-19 | XR_ITS ---
EXAMINATION: XR chest 1V portable INDICATION: Atrial fibrillation with RVR TECHNIQUE: Portable AP chest at 1107 hours COMPARISON: 04/01/2022 FINDINGS: The lungs are free of acute opacities. No pleural effusion or pneumothorax. The cardiomedia stinal silhouette is normal. IMPRESSION: 1. No acute cardiopulmonary abnormality. Reviewed, dictated and finalized at location B. WARE ASSEMBLER
--- NOTE | 2022-05-19 10:47 | ECG_ITS ---
Measurements Intervals [place] Rate: 141 P: [place]: 0 QRS: -37 QRSD: 117 T: 59 QT: 314 QTc: 481 Interpretive Statements ATRIAL FIBRILLATION WITH RAPID VENTRICULAR RESPONSE LEFT AXIS DEVIATION INTRAVENTRICULAR CONDUCTION DELAY CANNOT RULE OUT SEPTAL INFARCT, AGE INDETERMINATE BORDERLINE ST-T WAVE ABNORMALITY- HIGH LATERAL LEADS ABNORMAL ECG COMPARED TO ECG 04/01/2022 11:36:04 ATRIAL FIBRILLATION NOW PRESENT LEFT-AXIS DEVIATION NOW PRESENT Electronically Signed On 05-19-2022 11:06:20 COFFEE WEIGHER by Anupam Arias D.O.
--- NOTE | 2022-05-19 11:03 | ED.ARRPALP ---
HPI - Arrhythmia/Palpitations General Chief Complaint: Arrhythmia/Palpitations Stated Complaint: palpitations Time Seen by Provider: 05/19/22 10:55 History of Present Illness HPI narrative: This is a 57-year-old male with past medical history of A. fib, diagnosed in March 2022 on Toprol-XL 12.5 mg, who states he noted palpitations today while playing pickle ball. He states he felt anxious but denies chest pain or shortness of breath. He states he took his medications as prescribed and denies use of other drugs, caffeine he has or recent injury. Related Data Home Medications Medication Instructions Recorded Confirmed rosuvastatin 40 mg tablet 40 mg PO HS 03/22/22 04/24/22 Allergies Allergy/AdvReac Type Severity Reaction Status Date / Time No Known Allergies Allergy Verified 04/24/22 10:56 Review of Systems Review of Systems: CONSTITUTIONAL: Denies fever, chills, or sweats. ENT: Denies rhinorrhea, congestion, sore throat, or otalgia. CARDIOVASCULAR: Palpitations denies chest pain, or edema. RESPIRATORY: Denies cough or dyspnea. GASTROINTESTINAL: Denies abdominal pain, nausea, vomiting, or diarrhea. GENITOURINARY: Denies dysuria or hematuria. SKIN: Denies rash or itching. MUSCULOSKELETAL: Denies back pain, joint pain, or myalgia. NEUROLOGIC: Denies headache, numbness, dizziness, or weakness. PSYCHIATRIC: Anxious denies depression. [facility] Past Medical History Medical History (Updated 05/19/22 @ 11:09 by Suresh Victoria MD) Atrial fibrillation with rapid ventricular response Dyslipidemia Hypertension PAF (paroxysmal atrial fibrillation) Surgical History Surgical History History of cardiac catheterization Clear cardiac catheterization following abnormal stress test. Family History Family History Mother CAD (coronary artery disease) Father S/P CABG x 3 S/P internal cardiac defibrillator procedure Social History Social History Social History: Surrogate medical decision maker: Beth Bergman, . Code status: Full code. Smoking status: Never smoker Alcohol intake: never Substance use: never Lack of Transportation: No Lack of Food: Never True Current Housing: I Have Housing Concerned About Future Housing: No Difficulty Paying Gas/Electric Bills: No Difficulty Paying for Meds: No Currently Unemployed: No Education: Master's Degree or Higher Difficulty w/ Childcare or Family Care: YES Additional living arrangements comments: The patient is recently moved to the area from just outside of [place]. Additional occupation/education comments: Retired software. Spiritual care concerns: No Exam Narrative: GENERAL: Well-developed, well-nourished, and in no acute distress. HEAD: Normocephalic, atraumatic. EYES: PERRLA and EOMI. ENT: Nares clear, no rhinorrhea or epistaxis. Mucous membranes moist. Oropharynx without tonsillar hypertrophy exudate or other lesions. NECK: Supple. No adenopathy or masses. No carotid bruits or JVD CHEST: Clear to auscultation. No respiratory distress. No wheezes rales or rhonchi HEART: Irregularly irregular. no murmur heard. Normal peripheral pulses. ABDOMEN: Soft, nontender, nondistended, normal active bowel sounds. EXTREMITIES: Normal range of motion. No edema. SKIN: Warm, dry, no rash. NEURO: No focal deficits. Alert and oriented x3. PSYCH: Normal mood and affect. Course Course Emergency Course: 11:10 - 5mg Metoprolol IV given. 11:15 - Heart rate on the monitor down from 130s to 100s-110s appears to be in Afib. BP 134/83 12:21 - Discussed patient with Dr. Arias who recommends admission for chemical conversion with Sotalol and will speak with the patient 12:30 - Discussed recommendations as above, the patient is hesitant to be admitted. 12:43 - Discussed vipin
[2022-05-19 11:07] LABS: Basophils Absolute Auto 0.1 K/mm3 (0.0-0.1); Basophils Percent Auto 0.9 % (0.2-1.2); Eosinophils Absolute Auto 0.1 K/mm3 (0-0.3); Eosinophils Percent Auto 1.9 % (0-4.4); Hematocrit 47.1 % (42.0-52.0); Hemoglobin 15.8 g/dL (14.0-18.0); Immature Granulocyte Absolute 0.02 K/mm3 (0.00-0.031); Immature Granulocyte Percent A 0.3 % (0-0.5); Lymphocytes Absolute Auto 1.68 K/mm3 (0.9-3.2); Lymphocytes Percent Auto 28.6 % (18.3-44.2); Mean Corpuscular HGB Conc 33.5 g/dl (32-36); Mean Corpuscular Hemoglobin 31.9 pg (26-34); Mean Platelet Volume 8.8 fl (7.4-10.4); Monocytes Absolute Auto 0.5 K/mm3 (0.1-0.6); Monocytes Percent Auto 9.2 % (2.6-8.5); Neutrophils Absolute Auto 3.5 K/mm3 (1.3-6.7); Neutrophils Percent Auto 59.1 % (45.5-73.1); Platelet Count Result 174 k/mm3 (150-375); Red Blood Count 4.96 M/mm3 (4.6-6.20); Red Cell Distribution Width 12.5 % (11.5-14.5); White Blood Count 5.9 K/mm3 (4.5-10.0)
[2022-05-19] MEDS: METOPROLOL TARTRATE INJ 5 MG/5 ML VIAL IV PUSH (11:10)
[2022-05-19] MEDS: METOPROLOL SUCCINATE EXT REL 25 MG TABCR PO ×2 (11:12→13:34)
[2022-05-19 11:17] LABS: Prothrombin Time 12.4 Seconds (11.1-14.7)
[2022-05-19 11:18] LABS: Partial Thromboplastin Time 25.1 SECONDS (22.3-36.8)
[2022-05-19 11:31] LABS: Alanine Aminotransferase 48 U/L (6-50); Albumin Level 5.1 g/dL (3.5-5.1); Alkaline Phosphatase 109 U/L (38-126); Anion Gap 9 mmol/L (8-16); Aspartate Amino Transferase 40 U/L (17-59); Bilirubin,Total 0.6 mg/dL (0.2-1.3); Blood Urea Nitrogen 33 mg/dL (9-20); Calcium 9.7 mg/dL (8.4-10.2); Carbon Dioxide 26 mmol/L (22-30); Chloride 103 mmol/L (98-107); Estimated Glomerular Filt Rate > 60; Glucose 131 mg/dL (65-110); Lipase 169 U/L (23-300); Potassium 3.9 mmol/L (3.4-5.0); Sodium 138 mmol/L (137-145)
[2022-05-19 11:42] LABS: Troponin I < 0.012 ng/mL (0.000-0.034)
--- NOTE | 2022-05-19 12:11 | ECG_ITS ---
Measurements Intervals [place] Rate: 97 P: [place]: 0 QRS: -19 QRSD: 125 T: 34 QT: 354 QTc: 450 Interpretive Statements ATRIAL FIBRILLATION CANNOT RULE OUT SEPTAL INFARCT, AGE INDETERMINATE ABNORMAL ECG COMPARED TO ECG 05/19/2022 10:51:19 HEART RATE HAS DECREASED Electronically Signed On 05-19-2022 12:25:04 CROTCH PIECE BASTER by Anupam Arias D.O.
[2022-05-19] MEDS: dilTIAZem HCl INJ 25 MG/5 ML VIAL 10 MG IV PUSH (12:45)
--- NOTE | 2022-05-19 12:47 | PM.CNCAR ---
Assessment and Plan Assessment and plan (1) PAF (paroxysmal atrial fibrillation): Code(s): I48.0 - Paroxysmal atrial fibrillation Status: Acute Assessment and Plan: Second episode. Probably stress related. [id number] 1. On aspirin. On Toprol. He will let us know if he wants a sleep study. Discuss antiarrhythmic medication with Sotalol but he is hesitant to starting it and wants to discuss with his . Seen in ER and he wants a dose of Diltiazem since it worked to restore sinus rhythm the last time. Discuss with ER doctor. If he is back in sinus rhythm, may d/c home and f/u with me in 1-2 weeks. (2) Hypertension: Code(s): I10 - Essential (primary) hypertension Status: Acute Assessment and Plan: Stable. (3) Dyslipidemia: Code(s): E78.5 - Hyperlipidemia, unspecified Status: Acute Assessment and Plan: On Rosuvastatin. History of Present Illness History of Present Illness Consult date/time: 05/19/22 12:47 Reason For Visit: palpitations Narrative: 57 yr old man presents for a follow up visit regarding his cardiovascular status. He has a history of atrial fibrillation, hypertension and dyslipidemia. Reports palpitations starting this morning. He came to ER and shows rapid atrial fib. He is present with his . Previously, he exercises regularly with some vigorous activity.? On 03/23/22 after working out at 7 am he felt dizziness, sob, palpitations. He came to ER and noted to be in rapid atrial fibrillation.? He was given Diltiazem and has since converted back to sinus rhythm. It lasted about 5 hours. He does not believe he has RICH but does take a nap at times. He thinks its related to stress/anxiety.? Denies chest pain, orthopnea, PND, edema. Cardiovascular Procedures Echo/MUGA:: 03/22/22 Echo: EF 55-60%, grade I diastolic dysfunction, mild LAE, mild MR. Electrophysiology:: 03/22/22 EKG: Atrial fibrillation at 150 bpm, IVCD, cannot r/o septal infarct, age indeterminate. Review of Systems Review of Systems: All systems reviewed & are unremarkable except as noted in HPI and below Constitutional: Constitutional: Reports as per HPI, Denies chills and Denies fever(s) Cardiovascular: Cardiovascular: Reports as per HPI, Denies chest pain and Reports irregular heart rhythm Respiratory: Respiratory: Reports as per HPI and Denies dyspnea Gastrointestinal: Gastrointestinal: Reports as per HPI and Denies abdominal pain Genitourinary: Genitourinary: Reports as per HPI and Denies dysuria Musculoskeletal: Musculoskeletal: Reports as per HPI Neurologic: Reports as per HPI, Denies dizziness and Denies syncope [facility] Past Medical History Medical History (Updated 05/19/22 @ 11:09 by Suresh Victoria MD) Atrial fibrillation with rapid ventricular response Dyslipidemia Hypertension PAF (paroxysmal atrial fibrillation) Surgical History Surgical History History of cardiac catheterization Clear cardiac catheterization following abnormal stress test. Family History Family History Mother CAD (coronary artery disease) Father S/P CABG x 3 S/P internal cardiac defibrillator procedure Social History Social History Social History: Surrogate medical decision maker: Beth Bergman, . Code status: Full code. Smoking status: Never smoker Alcohol intake: never Substance use: never Lack of Transportation: No Lack of Food: Never True Current Housing: I Have Housing Concerned About Future Housing: No Difficulty Paying Gas/Electric Bills: No Difficulty Paying for Meds: No Currently Unemployed: No Education: Master's Degree or Higher Difficulty w/ Childcare or Family Care: YES Additional living arrangements comments: The patient is recently moved to the area from just outs
--- NOTE | 2022-05-19 13:06 | ECG_ITS ---
Measurements Intervals [place] Rate: 100 P: [place]: 0 QRS: -23 QRSD: 122 T: 43 QT: 363 QTc: 470 Interpretive Statements ATRIAL FIBRILLATION WITH RAPID VENTRICULAR RESPONSE CANNOT RULE OUT SEPTAL INFARCT, AGE INDETERMINATE ABNORMAL ECG COMPARED TO ECG 05/19/2022 12:21:41 NO SIGNIFICANT CHANGES Electronically Signed On 05-19-2022 13:43:41 FRONT ATTENDANT by Anupam Arias D.O.
== END 2022-05-19 13:51 | disposition home or self-care (01) ==
PROVIDERS: Emergency Medicine; Emergency Provider Preventive Medicine Aerospace Medicine
DX: I48.0 Paroxysmal atrial fibrillation (principal); E78.5 Hyperlipidemia, unspecified; I10 Essential (primary) hypertension; Z79.82 Long term (current) use of aspirin; I45.9 Conduction disorder, unspecified; R94.31 Abnormal electrocardiogram [ECG] [EKG]
CPT/HCPCS: 36415; 71045; 80053; 83690; 84484; 85025; 85610; 85730; 93005; 96374; 96375; 99284; A9270

== ENCOUNTER 2022-05-30 11:31 | Observation (INO) | payer BC, SELFPAY ==
[2022-05-30] VITALS (13 sets, daily range): BP systolic 110–126; BP diastolic 73–93; PULSE 81–155; RESP 13–27; TEMP 36.6–37.2; O2SAT 94–98; BMI 31.1
--- NOTE | ~2022-05-30 | XR_ITS ---
EXAMINATION: XR chest 2V DATE: 05/30/2022 12:02 INDICATION: Heart palpitations TECHNIQUE: PA and lateral views of the chest were obtained. COMPARISON: Chest radiograph dated 05/19/2022 FINDINGS: The lungs remain clear with no focal airspace opacities, pulmonary edema, pleural effusion or pneumot horax. The cardiomediastinal silhouette is normal. Mild thoracic spondylosis. IMPRESSION: 1. No acute cardiopulmonary disease. Reviewed, dictated and finalized at location L. ERMAKER HELPER
--- NOTE | 2022-05-30 11:32 | ECG_ITS ---
Measurements Intervals [place] Rate: 156 P: [place]: 0 QRS: -27 QRSD: 112 T: 66 QT: 292 QTc: 471 Interpretive Statements ATRIAL FIBRILLATION WITH RAPID VENTRICULAR RESPONSE VENTRICULAR TRIPLET CANNOT RULE OUT SEPTAL INFARCT, AGE INDETERMINATE BORDERLINE ST-T WAVE ABNORMALITY- HIGH LATERAL LEADS ABNORMAL ECG COMPARED TO ECG 05/19/2022 13:24:22 ST-T WAVE ABNORMALITY NOW PRESENT Electronically Signed On 05-30-2022 12:16:41 FIELD OPERATIONS FARM MANAGER by Anupam Arias D.O.
[2022-05-30 11:49] LABS: Basophils Absolute Auto 0.1 K/mm3 (0.0-0.1); Basophils Percent Auto 1.1 % (0.2-1.2); Eosinophils Absolute Auto 0.2 K/mm3 (0-0.3); Eosinophils Percent Auto 2.7 % (0-4.4); Hematocrit 45.2 % (42.0-52.0); Hemoglobin 15.6 g/dL (14.0-18.0); Immature Granulocyte Absolute 0.02 K/mm3 (0.00-0.031); Immature Granulocyte Percent A 0.3 % (0-0.5); Lymphocytes Absolute Auto 2.69 K/mm3 (0.9-3.2); Lymphocytes Percent Auto 38.3 % (18.3-44.2); Mean Corpuscular HGB Conc 34.5 g/dl (32-36); Mean Corpuscular Hemoglobin 32.3 pg (26-34); Mean Corpuscular Volume 93.6 fl (80-100); Mean Platelet Volume 8.6 fl (7.4-10.4); Monocytes Absolute Auto 0.7 K/mm3 (0.1-0.6); Monocytes Percent Auto 10.1 % (2.6-8.5); Neutrophils Absolute Auto 3.3 K/mm3 (1.3-6.7); Neutrophils Percent Auto 47.5 % (45.5-73.1); Platelet Count Result 220 k/mm3 (150-375); Red Blood Count 4.83 M/mm3 (4.6-6.20); Red Cell Distribution Width 12.6 % (11.5-14.5)
[2022-05-30 11:59] LABS: Alanine Aminotransferase 55 U/L (6-50); Albumin Level 4.9 g/dL (3.5-5.1); Alkaline Phosphatase 106 U/L (38-126); Anion Gap 8 mmol/L (8-16); Aspartate Amino Transferase 42 U/L (17-59); Bilirubin,Total 0.6 mg/dL (0.2-1.3); Blood Urea Nitrogen 30 mg/dL (9-20); Calcium 8.8 mg/dL (8.4-10.2); Carbon Dioxide 24 mmol/L (22-30); Chloride 104 mmol/L (98-107); Estimated CRCL calculation 55 ml/min; Estimated Glomerular Filt Rate 48; Glucose 132 mg/dL (65-110); Lipase 274 U/L (23-300); Potassium 3.7 mmol/L (3.4-5.0); Prothrombin Time 12.9 Seconds (11.1-14.7); Sodium 136 mmol/L (137-145)
--- NOTE | 2022-05-30 12:03 | PC.NURSE ---
return from xray. sinus arrythmia noted on monitor with rate low 100's.
--- NOTE | 2022-05-30 12:10 | PC.NURSE ---
walked into room to find pt with fingers on carotid pulse. again inquiring about his heartrate. advised would like to place monitor on privacy mode due to st noted upon return from xray. pt refusing. states he deserves to know what his heart rate is at all times. pt anxious.
[2022-05-30 12:15] LABS: Troponin I < 0.012 ng/mL (0.000-0.034)
--- NOTE | 2022-05-30 12:15 | ED.ARRPALP ---
HPI - Arrhythmia/Palpitations General Chief Complaint: Arrhythmia/Palpitations Stated Complaint: palpitations Time Seen by Provider: 05/30/22 12:06 History of Present Illness HPI narrative: Patient is a 57-year-old male with a history of paroxysmal A. fib, hypertension, hyperlipidemia presenting with palpitations. Patient states that he has had several episodes of A. fib with RVR over the last several weeks. States that normally resolves with Cardizem. States today he was playing pickle ball when he developed palpitations and anxiety. States that he does struggle with anxiety and it is hard for him to tell if the anxiety starts first or the palpitations start first. States that he continues to feel like his heart rate is irregular. He denies any chest pain or pressure, shortness of breath, lightheadedness. He denies any recent fevers or chills, cough, nausea or vomiting, abdominal pain, leg swelling. Related Data Home Medications Medication Instructions Recorded Confirmed rosuvastatin 40 mg tablet 40 mg PO HS 03/22/22 05/30/22 Allergies Allergy/AdvReac Type Severity Reaction Status Date / Time No Known Allergies Allergy Verified 05/30/22 11:55 Review of Systems Review of Systems: All systems reviewed & are unremarkable except as noted in HPI and below PMFSH Past Medical History Medical History Atrial fibrillation with rapid ventricular response Dyslipidemia Hypertension PAF (paroxysmal atrial fibrillation) Surgical History Surgical History H/O hand surgery left pinkie History of cardiac catheterization Clear cardiac catheterization following abnormal stress test. Family History Family History Mother CAD (coronary artery disease) Father S/P CABG x 3 S/P internal cardiac defibrillator procedure Asthma Congestive heart failure Social History Social History Social History: Surrogate medical decision maker: Beth Bergman, . 2 children Code status: Full code. Smoking status: Never smoker Alcohol intake: never Substance use: never Lack of Transportation: No Lack of Food: Never True Current Housing: I Have Housing Concerned About Future Housing: No Difficulty Paying Gas/Electric Bills: No Difficulty Paying for Meds: No Currently Unemployed: No Education: Master's Degree or Higher Difficulty w/ Childcare or Family Care: No Additional living arrangements comments: The patient is recently moved to the area from just outside of [place]. 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 HEAD: Normocephalic, atraumatic. EYES: PERRLA and EOMI. ENT: Nares clear, no rhinorrhea or epistaxis. Mucous membranes moist. NECK: Supple. CHEST: Clear to auscultation. No respiratory distress. HEART: Irregular rhythm, tachycardic. No murmur heard. Normal peripheral pulses. ABDOMEN: Soft, nontender, nondistended, normal active bowel sounds. EXTREMITIES: Normal range of motion. No edema. SKIN: Warm, dry, no rash. NEURO: No focal deficits. Alert and oriented x3. PSYCH: Normal mood and affect. Course Vital Signs Vital signs: Vital Signs Temperature 97.9 F 05/30/22 11:43 Respiratory Rate 20 05/30/22 11:43 Blood Pressure 122/73 05/30/22 11:43 Pulse Oximetry 95 05/30/22 11:43 Temperature 99 F 05/30/22 16:21 Pulse Rate 82 05/30/22 16:47 Respiratory Rate 15 05/30/22 16:21 Blood Pressure 126/78 05/30/22 16:21 Pulse Oximetry 94 05/30/22 16:21 Oxygen Delivery Room Air 05/30/22 16:20 MDM - Arrhythmia/Palpitations MDM Narrative Medical decision making narrative: Patient is a 57-year-old male
[2022-05-30] MEDS: SODIUM CHLORIDE 0.9% IV 1,000 ML 999 ML IV CONT (12:30)
[2022-05-30] MEDS: dilTIAZem HCl INJ 25 MG/5 ML VIAL 10 MG IV PUSH (12:31)
--- NOTE | 2022-05-30 14:27 | PM.IMHP ---
H&P: HPI History of Present Illness Date/Time: 05/30/22 14:27 Chief Complaint: Arrhythmia Narrative: This is a 57-year-old male patient has a history of paroxysmal AFib, hypertension hyperlipidemia. The patient stated that his heart rate is typically well controlled however he developed palpitations and has had several episodes of AFib with RVR over the last several weeks. Normally resolves with Cardizem. The patient was recently in the emergency room and was given a dose of IV Cardizem and went home. Today the patient stated he was playing pickle ball when he developed palpitations and anxiety. The patient stated that he does deal with anxiety and it is hard to tell if it is anxiety or palpitations. The patient stated that his heart rate felt irregular however he did not feel any chest pain shortness breast or lightheadedness. No fever chills. The patient was given IV Cardizem IV fluids and was seen by the hat presser Dr. Arias. Dr. Umaña examine the patient is started him on flecainide and explained to the patient that the patient could go home. This will be a short-stay summary. Date of service is 05/30/2022. Review of Systems Review of Systems: See HPI All systems reviewed & are unremarkable except as noted in HPI and below Constitutional: Constitutional: Reports as per HPI and Reports no additional constitutional complaints Eyes: Eyes: Reports as per HPI and Reports no additional eye complaints ENT: Reports system reviewed and no additional complaints, except as documented and Reports Normal hearing present Cardiovascular: Cardiovascular: Reports no additional cardiovascular complaints Respiratory: Respiratory: Reports no additional respiratory complaints and Reports no additional respiratory complaints Gastrointestinal: Gastrointestinal: Reports as per HPI and Reports no additional gastrointestinal complaints Musculoskeletal: Musculoskeletal: Reports no additional musculoskeletal complaints Integumentary/Breasts: Skin/Breast: Reports system reviewed and no additional complaints, except as docu and Reports as per HPI Neurologic: Reports system reviewed and no additional complaints, except as documented, Reports as per HPI and Reports Normal hearing present Psychiatric: Psychiatric: Reports no additional psychiatric complaints and Reports as per HPI Endocrine: Endocrine: Reports no additional endocrine complaints Hematologic/Lymphatic: Hematologic/Lymphatic: Reports no additional hematologic/lymphatic complaints Allergic/Immunologic: Allergic/Immunologic: Reports no additional allergic/immunologic complaints PMFSH Past Medical History Medical History Atrial fibrillation with rapid ventricular response Dyslipidemia Hypertension PAF (paroxysmal atrial fibrillation) Surgical History Surgical History H/O hand surgery left pinkie History of cardiac catheterization Clear cardiac catheterization following abnormal stress test. Family History Family History Mother CAD (coronary artery disease) Father S/P CABG x 3 S/P internal cardiac defibrillator procedure Asthma Congestive heart failure Social History Social History Social History: Surrogate medical decision maker: Beth Bergman, . 2 children Code status: Full code. Smoking status: Never smoker Alcohol intake: never Substance use: never Lack of Transportation: No Lack of Food: Never True Current Housing: I Have Housing Concerned About Future Housing: No Difficulty Paying Gas/Electric Bills: No Difficulty Paying for Meds: No Currently Unemployed: No Education: Master's Degree or Higher Difficulty w/ Childcare or Family Care: No Additional living arrangements comments: The patient is recently moved t
[2022-05-30] MEDS: dilTIAZem 100 MG/100 ML 100 MG/100 ML BAG IV CONT (15:01)
[2022-05-30 15:08] LABS: Influenza A QL RT-PCR Negative (Negative); Influenza B QL RT-PCR Negative (Negative); SARS-CoV-2 RNA PCR Negative
[2022-05-30 15:26] LABS: Troponin I < 0.012 ng/mL (0.000-0.034)
--- NOTE | 2022-05-30 16:12 | ADMGEN ---
This patient, Tal Bergman, was admitted to [facility]. Patient/family oriented to hospital policies and general routines including ID bracelet, bed and alarms, visiting hours, pain management, procedures, bathroom and other care routines, personal items, smoking policy, room service/diet, and visiting hours. Information on how to activate the Rapid Response Team has been discussed. Patient/Family are encouraged to report perceived risks to care and to ask questions if they do not understand what they are told or what they should do.
--- NOTE | 2022-05-30 16:41 | PM.CNCAR ---
Assessment and Plan Assessment and plan (1) PAF (paroxysmal atrial fibrillation): Code(s): I48.0 - Paroxysmal atrial fibrillation Status: Acute Assessment and Plan: Third episode. Probably stress related or undiagnosed RICH. [id number] 1. On aspirin. On Toprol. Discuss antiarrhythmic medication with Sotalol and Flecainide and he is interested in starting Flecainide. Start Flecainide 100 mg BID. May d/c home from cardiology standpoint and f/u with me in 1 week. (2) Hypertension: Code(s): I10 - Essential (primary) hypertension Status: Acute Assessment and Plan: Stable. (3) Dyslipidemia: Code(s): E78.5 - Hyperlipidemia, unspecified Status: Acute Assessment and Plan: On Rosuvastatin. History of Present Illness History of Present Illness Consult date/time: 05/30/22 16:41 Reason For Visit: Afib with RVR Narrative: 57 yr old man who is my regular cardiology patient presents to ER with atrial fibrillation. He has a history of atrial fibrillation, hypertension and dyslipidemia. Reports palpitations starting this morning. He came to ER and shows rapid atrial fib.? This is his 3rd bout of it in last few months. Previously, he exercises regularly with some vigorous activity.? On 03/23/22 after working out at 7 am he felt dizziness, sob, palpitations. He came to ER and noted to be in rapid atrial fibrillation.? He was given Diltiazem and has since converted back to sinus rhythm. It lasted about 5 hours. He does not believe he has RICH but does take a nap at times. He thinks its related to stress/anxiety.? Denies chest pain, orthopnea, PND, edema. Cardiovascular Procedures Echo/MUGA:: 03/22/22 Echo: EF 55-60%, grade I diastolic dysfunction, mild LAE, mild MR. Electrophysiology:: 03/22/22 EKG: Atrial fibrillation at 150 bpm, IVCD, cannot r/o septal infarct, age indeterminate. Review of Systems Review of Systems: All systems reviewed & are unremarkable except as noted in HPI and below Constitutional: Constitutional: Reports as per HPI, Denies chills and Denies fever(s) Cardiovascular: Cardiovascular: Reports as per HPI, Denies chest pain and Reports irregular heart rhythm Respiratory: Respiratory: Reports as per HPI and Denies dyspnea Gastrointestinal: Gastrointestinal: Reports as per HPI and Denies abdominal pain Genitourinary: Genitourinary: Reports as per HPI and Denies dysuria Musculoskeletal: Musculoskeletal: Reports as per HPI Neurologic: Reports as per HPI, Denies dizziness and Denies syncope [facility] Past Medical History Medical History (Updated 05/30/22 @ 16:11 by Fide Rodríguez MD) Atrial fibrillation with rapid ventricular response Dyslipidemia Hypertension PAF (paroxysmal atrial fibrillation) Surgical History Surgical History (Updated 05/30/22 @ 14:29 by Winsome Oden NP) H/O hand surgery left pinkie History of cardiac catheterization Clear cardiac catheterization following abnormal stress test. Family History Family History (Updated 05/30/22 @ 16:15 by Merry Portillo RN) Mother CAD (coronary artery disease) Father S/P CABG x 3 S/P internal cardiac defibrillator procedure Asthma Congestive heart failure Social History Social History (Updated 05/30/22 @ 14:30 by Winsome Oden NP) Social History: Surrogate medical decision maker: Beth Bergman, . 2c Code status: Full code. Smoking status: Never smoker Alcohol intake: never Substance use: never Lack of Transportation: No Lack of Food: Never True Current Housing: I Have Housing Concerned About Future Housing: No Difficulty Paying Gas/Electric Bills: No Difficulty Paying for Meds: No Currently Unemployed: No Education: Master's Degree or Higher Difficulty w/ Childcare or Family Care: No Additional living arrangements comments: The patient is recently moved to the area from just outside of [place]. Additional occupation/edu
[2022-05-30] MEDS: FLECAINIDE ACETATE 100 MG TABLET PO (16:47)
== END 2022-05-30 17:11 | disposition home or self-care (01) ==
LOC: ANHED 12:06 → ANHCPC 15:53
PROVIDERS: Emergency Medicine; Admitting Provider Family Medicine; Emergency Provider Emergency Medicine; Visit Provider Family Medicine
DX: I48.0 Paroxysmal atrial fibrillation (principal); I10 Essential (primary) hypertension; E78.5 Hyperlipidemia, unspecified; R00.0 Tachycardia, unspecified; F41.9 Anxiety disorder, unspecified; Z20.822 Contact with and (suspected) exposure to COVID-19; R94.31 Abnormal electrocardiogram [ECG] [EKG]; Z79.82 Long term (current) use of aspirin; Z79.899 Other long term (current) drug therapy; Z82.49 Family history of ischemic heart disease and other diseases of the circulatory system
CPT/HCPCS: 36415; 71046; 80053; 83690; 84484; 85025; 85610; 85730; 87636; 93005; 96365; 96376; 99285; A9270; G0378; J7030

== ENCOUNTER 2022-06-08 08:26 | Emergency (ER) | payer BC, SELFPAY ==
[2022-06-08] VITALS (10 sets, daily range): BP systolic 107–154; BP diastolic 54–98; PULSE 66–139; RESP 16–23; TEMP 36.3; O2SAT 94–99
--- NOTE | ~2022-06-08 | XR_ITS ---
EXAMINATION: XR chest 2V DATE: 06/08/2022 08:49 INDICATION: Heart palpitations TECHNIQUE: PA and lateral views of the chest are obtained. COMPARISON: 05/30/2022 FINDINGS: The lungs are free of acute opacities. No pleural effusion or pneumothorax. The cardiomedia stinal silhouette is normal. There is mild thoracic spondylosis. IMPRESSION: 1. No acute cardiopulmonary abnormality. Reviewed, dictated and finalized at location L. ODIC PROTECTION TECHNICIAN
--- NOTE | 2022-06-08 08:40 | ECG_ITS ---
Measurements Intervals [place] Rate: 129 P: PA: 0 QRS: -46 QRSD: 129 T: 59 QT: 342 QTc: 501 Interpretive Statements ATRIAL FIBRILLATION WITH RAPID VENTRICULAR RESPONSE LEFT ANTERIOR FASCICULAR BLOCK [QRS AXIS <= -45, QR IN I, RS IN II] ANTEROSEPTAL MYOCARDIAL INFARCTION , OF INDETERMINATE AGE [40+ ms Q WAVE IN V1-V4] ABNORMAL ECG COMPARED TO ECG 05/30/2022 11:37:35 LEFT ANTERIOR FASCICULAR BLOCK NOW PRESENT Electronically Signed On 06-08-2022 10:10:14 ORTHODONTIST by Markie Zapata M.D.
[2022-06-08 08:48] LABS: Basophils Absolute Auto 0.1 K/mm3 (0.0-0.1); Basophils Percent Auto 0.8 % (0.2-1.2); Eosinophils Absolute Auto 0.1 K/mm3 (0-0.3); Hematocrit 46.4 % (42.0-52.0); Hemoglobin 15.4 g/dL (14.0-18.0); Immature Granulocyte Absolute 0.02 K/mm3 (0.00-0.031); Immature Granulocyte Percent A 0.3 % (0-0.5); Lymphocytes Absolute Auto 1.43 K/mm3 (0.9-3.2); Lymphocytes Percent Auto 22.4 % (18.3-44.2); Mean Corpuscular HGB Conc 33.2 g/dl (32-36); Mean Corpuscular Hemoglobin 32.1 pg (26-34); Mean Corpuscular Volume 96.7 fl (80-100); Mean Platelet Volume 8.9 fl (7.4-10.4); Monocytes Absolute Auto 0.6 K/mm3 (0.1-0.6); Monocytes Percent Auto 8.6 % (2.6-8.5); Neutrophils Absolute Auto 4.2 K/mm3 (1.3-6.7); Neutrophils Percent Auto 65.9 % (45.5-73.1); Platelet Count Result 199 k/mm3 (150-375); Red Cell Distribution Width 13.2 % (11.5-14.5); White Blood Count 6.4 K/mm3 (4.5-10.0)
[2022-06-08 08:57] LABS: Prothrombin Time 12.6 Seconds (11.1-14.7)
[2022-06-08 08:58] LABS: Partial Thromboplastin Time 26.6 SECONDS (22.3-36.8)
[2022-06-08 08:59] LABS: Alanine Aminotransferase 57 U/L (6-50); Albumin Level 4.6 g/dL (3.5-5.1); Alkaline Phosphatase 110 U/L (38-126); Anion Gap 9 mmol/L (8-16); Aspartate Amino Transferase 48 U/L (17-59); Bilirubin,Total 0.7 mg/dL (0.2-1.3); Blood Urea Nitrogen 28 mg/dL (9-20); Calcium 9.2 mg/dL (8.4-10.2); Carbon Dioxide 25 mmol/L (22-30); Chloride 105 mmol/L (98-107); Estimated CRCL calculation 101 ml/min; Estimated Glomerular Filt Rate > 60; Glucose 150 mg/dL (65-110); Potassium 3.9 mmol/L (3.4-5.0); Sodium 139 mmol/L (137-145)
[2022-06-08] MEDS: dilTIAZem HCl INJ 25 MG/5 ML VIAL 5 MG IV PUSH (09:04)
[2022-06-08 09:11] LABS: Troponin I < 0.012 ng/mL (0.000-0.034)
[2022-06-08] MEDS: FLECAINIDE ACETATE 50 MG TABLET PO (09:13)
--- NOTE | 2022-06-08 10:27 | ED.ARRPALP ---
HPI - Arrhythmia/Palpitations General Chief Complaint: Arrhythmia/Palpitations Stated Complaint: afib Time Seen by Provider: 06/08/22 08:27 History of Present Illness HPI narrative: Patient is a 57-year-old male who presents ER with heart palpitations. Began after light exercise. No chest pain or chest pressure. Has history of atrial fibrillation. Takes flecainide 100 mg twice a day. Also takes Toprol-XL 12.[address] Arias. No caffeine usage. Patient did have some brief dizziness at onset of palpitations. Related Data Home Medications Medication Instructions Recorded Confirmed rosuvastatin 40 mg tablet 40 mg PO HS 03/22/22 06/06/22 Allergies Allergy/AdvReac Type Severity Reaction Status Date / Time No Known Allergies Allergy Verified 06/06/22 13:22 Review of Systems Review of Systems: All systems reviewed & are unremarkable except as noted in HPI and below Constitutional: Constitutional: Denies chills, Denies fatigue and Denies fever(s) ENT: Denies nasal congestion and Denies sore throat Cardiovascular: Cardiovascular: Denies chest pain, Reports rapid heart rate and Denies radiating jaw, neck or arm pain Respiratory: Respiratory: Denies cough, Denies dyspnea and Denies wheezing Neurologic: Reports dizziness and Denies syncope PMFSH Past Medical History Medical History Atrial fibrillation with rapid ventricular response Dyslipidemia Hypertension PAF (paroxysmal atrial fibrillation) Surgical History Surgical History H/O hand surgery left pinkie History of cardiac catheterization Clear cardiac catheterization following abnormal stress test. Family History Family History Mother CAD (coronary artery disease) Father S/P CABG x 3 S/P internal cardiac defibrillator procedure Asthma Congestive heart failure Social History Social History Social History: Surrogate medical decision maker: Beth Bergman, . 2 children Code status: Full code. Smoking status: Never smoker Alcohol intake: never Substance use: never Lack of Transportation: No Lack of Food: Never True Current Housing: I Have Housing Concerned About Future Housing: No Difficulty Paying Gas/Electric Bills: No Difficulty Paying for Meds: No Currently Unemployed: No Education: Master's Degree or Higher Difficulty w/ Childcare or Family Care: No Additional living arrangements comments: The patient is recently moved to the area from just outside of [place]. 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 HEAD: Normocephalic, atraumatic. ENT: Mucous membranes moist. NECK: Supple. CHEST: Irregular regular rate and rhythm is tachycardic. No respiratory distress. HEART: Regular rate and rhythm. Normal peripheral pulses. EXTREMITIES: Normal range of motion. No edema. SKIN: Warm, dry, no rash. NEURO: Alert and oriented x3. PSYCH: Normal mood and affect. Course Course Emergency Course: Patient resting comfortably, heart rate back in normal sinus rhythm after 5 mg of IV diltiazem. Discussed case with Dr. Arias and we are to increase flecainide to 150 mg twice a day and patient will receive 50 mg while in the ER. Patient has no questions about the treatment plan that has been developed. He will be discharged at this time. Vital Signs Vital signs: Vital Signs Temperature 97.4 F L 06/08/22 08:28 Pulse Rate 139 H 06/08/22 08:28 Respiratory Rate 18 06/08/22 08:28 Blood Pressure 154/98 H 06/08/22 08:28 Pulse Oximetry 97 06/08/22 08:28 Oxygen Delivery Room Air 06/08/22 08:28 Temperature 97.4 F L 06/08/22 08:28 Pul
== END 2022-06-08 11:21 | disposition home or self-care (01) ==
PROVIDERS: Emergency Provider Emergency Medicine
DX: I48.0 Paroxysmal atrial fibrillation (principal); E78.5 Hyperlipidemia, unspecified; I10 Essential (primary) hypertension; Z79.82 Long term (current) use of aspirin; I44.4 Left anterior fascicular block; R94.31 Abnormal electrocardiogram [ECG] [EKG]
CPT/HCPCS: 36415; 71046; 80053; 84484; 85025; 85610; 85730; 93005; 96374; 99284; A9270

== ENCOUNTER 2022-06-16 08:57 | Emergency (ER) | payer BC, SELFPAY ==
--- NOTE | ~2022-06-16 | XR_ITS ---
EXAMINATION: XR chest 1V DATE: 06/16/2022 10:05 INDICATION: Transient ischemic attack. Left jaw tingling. TECHNIQUE: A single frontal view of the chest was obtained. COMPARISON: Chest 2 views 06/08/2022 FINDINGS: The chest demonstrates clear lungs without pneumonia, pleural effusion, or pneumothorax. Th e heart size is normal. IMPRESSION: 1. No acute cardiopulmonary disease. Reviewed, dictated and finalized at location A. WRITER ASSEMBLY AND PARTS INSPECTOR
--- NOTE | ~2022-06-16 | CT_ITS ---
EXAMINATION: CT brain wo con DATE: 06/16/2022 10:01 INDICATION: Transient ischemic attack. TECHNIQUE: Computed tomography (CT) of the head was performed without intravenous contrast. The mA wa s adjusted according to patient size. Iterative reconstruction technique was employed. The dose-lengt h product was 605.33 mGy-cm. COMPARISON: None FINDINGS: There are scattered areas of low attenuation in the cerebral white matter, which is within normal limits for the patient's age. There is no intracranial hemorrhage, acute infarction, or abnorm al intracranial mass lesion. The ventricles are normal in size. Cavum septum pellucidum is noted. The re are likely changes of ocular lens replacement surgeries. There is mild mucosal thickening in the p aranasal sinuses. Right maxillary sinus is small. The mastoid air cells are normal. IMPRESSION: 1. Normal brain. Reviewed, dictated and finalized at location A. FIRE OPERATOR IMPRESSION: 1. Normal brain.
[2022-06-16 09:15] VITALS: BP 136/79; PULSE 59; RESP 16; TEMP 36.9; O2SAT 98
--- NOTE | 2022-06-16 09:51 | ED.NEUROSD ---
HPI - Neuro Symptoms/Deficit General Chief Complaint: Neuro Symptoms/Deficit Stated Complaint: tingling to face and left hand for 1-2 second Time Seen by Provider: 06/16/22 09:16 Source: patient and family Mode of arrival: ambulatory Limitations: no limitations History of Present Illness HPI Narrative: Patient is 57 years old white male presents with sudden onset of numbness left face and left hand lasted for 2 seconds. He denies any fever, chills, nausea, vomiting, chest pain, headache, focal neurodeficit. Or having similar symptoms. History of anxiety. Related Data Home Medications Medication Instructions Recorded Confirmed rosuvastatin 40 mg tablet 40 mg PO HS 03/22/22 06/06/22 Allergies Allergy/AdvReac Type Severity Reaction Status Date / Time No Known Allergies Allergy Verified 06/06/22 13:22 Review of Systems Review of Systems: All systems reviewed & are unremarkable except as noted in HPI and below PMFSH Past Medical History Medical History Atrial fibrillation with rapid ventricular response Dyslipidemia Hypertension PAF (paroxysmal atrial fibrillation) Surgical History Surgical History H/O hand surgery left pinkie History of cardiac catheterization Clear cardiac catheterization following abnormal stress test. Family History Family History Mother CAD (coronary artery disease) Father S/P CABG x 3 S/P internal cardiac defibrillator procedure Asthma Congestive heart failure Social History Social History Social History: Surrogate medical decision maker: Beth Bergman, . 2 children Code status: Full code. Smoking status: Never smoker Alcohol intake: never Substance use: never Lack of Transportation: No Lack of Food: Never True Current Housing: I Have Housing Concerned About Future Housing: No Difficulty Paying Gas/Electric Bills: No Difficulty Paying for Meds: No Currently Unemployed: No Education: Master's Degree or Higher Difficulty w/ Childcare or Family Care: No Additional living arrangements comments: The patient is recently moved to the area from just outside of [place]. Additional occupation/education comments: Retired software. Spiritual care concerns: No Exam Narrative: General appearance: Well-developed, well-nourished Skin: Normal color Head: Normocephalic, nontraumatic Eyes: Clear conjunctiva ENT: Oropharynx normal, ears normal, nose normal Neck: Supple, nontender Chest and respiratory: Airway patent, no respiratory distress, no accessory muscle use Heart: Regular rate/rhythm Abdomen: Soft, nontender, no organomegaly, quiet bowel sounds Vascular: Normal peripheral pulses, normal capillary refill. Musculoskeletal: Normal range of motion, nontender back Neurologic: Alert and oriented ?3, CORPORATE HUMAN RESOURCES MANAGER is normal as tested, no gross motor deficit Course Reevaluation(s) Reevaluation #1: Patient is still asymptomatic, denying any symptoms. Date: 06/16/22 Time: 12:00 Vital Signs Vital signs: Vital Signs Temperature 36.9 C 06/16/22 09:15 Pulse Rate 59 L 06/16/22 09:15 Respiratory Rate 16 06/16/22 09:15 Blood Pressure 136/79 06/16/22 09:15 Pulse Oximetry 98 06/16/22 09:15 Oxygen Delivery Room Air 06/16/22 09:15 Temperature 36.9 C 06/16/22 09:15 Pulse Rate 59 L 06/16/22 09:15 Respiratory Rate 16 06/16/22 09:15 Blood Pressure 136/79 06/16/22 09:15 Pulse Oximetry 98 06/16/22 09:15 Oxygen Delivery Room Air 02
--- NOTE | 2022-06-16 09:52 | ECG_ITS ---
Measurements Intervals [place] Rate: 59 P: 21 CT: 199 QRS: -28 QRSD: 142 T: 13 QT: 441 QTc: 437 Interpretive Statements SINUS BRADYCARDIA INTRAVENTRICULAR CONDUCTION DELAY [130+ ms QRS DURATION] COMPARED TO ECG 06/08/2022 08:32:56 SINUS RHYTHM REPLACES ATRIAL FIBRILLATION Electronically Signed On 06-16-2022 13:14:17 FISH CUTTING MACHINE OPERATOR by Dre Fischer M.D.
[2022-06-16 10:34] LABS: Basophils Absolute Auto 0.1 K/mm3 (0.0-0.1); Eosinophils Absolute Auto 0.1 K/mm3 (0-0.3); Eosinophils Percent Auto 1.9 % (0-4.4); Hematocrit 44.5 % (42.0-52.0); Immature Granulocyte Absolute 0.01 K/mm3 (0.00-0.031); Immature Granulocyte Percent A 0.2 % (0-0.5); Lymphocytes Absolute Auto 1.26 K/mm3 (0.9-3.2); Lymphocytes Percent Auto 21.3 % (18.3-44.2); Mean Corpuscular HGB Conc 33.7 g/dl (32-36); Mean Corpuscular Hemoglobin 31.7 pg (26-34); Mean Corpuscular Volume 94.1 fl (80-100); Mean Platelet Volume 8.6 fl (7.4-10.4); Monocytes Absolute Auto 0.5 K/mm3 (0.1-0.6); Monocytes Percent Auto 8.6 % (2.6-8.5); Platelet Count Result 194 k/mm3 (150-375); Red Blood Count 4.73 M/mm3 (4.6-6.20); Red Cell Distribution Width 13.3 % (11.5-14.5); White Blood Count 5.9 K/mm3 (4.5-10.0)
[2022-06-16 10:46] LABS: Alanine Aminotransferase 51 U/L (6-50); Alkaline Phosphatase 110 U/L (38-126); Anion Gap 7 mmol/L (8-16); Aspartate Amino Transferase 43 U/L (17-59); Bilirubin,Total 0.8 mg/dL (0.2-1.3); Blood Urea Nitrogen 21 mg/dL (9-20); Calcium 9.5 mg/dL (8.4-10.2); Carbon Dioxide 27 mmol/L (22-30); Chloride 100 mmol/L (98-107); Estimated CRCL calculation 90 ml/min; Estimated Glomerular Filt Rate > 60; Glucose 117 mg/dL (65-110); Sodium 134 mmol/L (137-145)
[2022-06-16 12:00] VITALS: BP 110/69; PULSE 66; RESP 16; O2SAT 97
== END 2022-06-16 12:00 | disposition home or self-care (01) ==
PROVIDERS: Emergency Provider Emergency Medicine
DX: F41.9 Anxiety disorder, unspecified (principal); I48.0 Paroxysmal atrial fibrillation; E78.5 Hyperlipidemia, unspecified; I10 Essential (primary) hypertension; R00.1 Bradycardia, unspecified; I45.9 Conduction disorder, unspecified
CPT/HCPCS: 36415; 70450; 71045; 80053; 85025; 93005; 99284

== ENCOUNTER 2022-07-12 08:18 | Outpatient (CLI) | payer BC, SELFPAY ==
--- NOTE | 2022-07-25 14:12 | WPDHOMESLEEP ---
Sleep Study - Home Unattended Date of Study: 07/12/22 Ordering Provider: Anupam Arias DO Interpreting Provider: Chacha Gleason DO Home Sleep Study Type: Watch PAT Height: 1.85 m Weight: 102.058 kg Body Mass Index: 29.7 Neck Circumference (inches): 15.5 [place]: 2 Reason for Sleep Study Atrial fibrillation Sleep History The patient is a 57-year-old male with atrial fibrillation, hyperlipidemia and hypertension that had a sleep study ordered by his animal husbandry technician for evaluation of sleep apnea. The patient denies awakening from sleep short of breath. He denies awakening at night with heartburn, belching or cough. He occasionally snores but it is rarely loud enough that others complain. He denies having trouble sleeping when he has a cold. He denies waking up gasping for air throughout the night. He denies having breathing problems at night observed by himself or others. He denies sweating excessively at night. He denies having heart palpitations or irregular heartbeats during the night. He rarely falls asleep during the day and never while driving. He denies sleep paralysis, cataplexy and hypnagogic / hypnopompic hallucinations. He denies having trouble at school or work due to sleepiness. He denies feeling afraid of going to sleep. He rarely has nightmares. He occasionally remembers his dreams. He occasionally has thoughts racing through his mind. He rarely feels sad or depressed. He frequently has anxiety. He denies having muscular tension. He denies noticing parts of his body jerk. He denies kicking during the night. He denies having crawling and aching feelings in his legs as well as leg pain during the night. He denies grinding his teeth during sleep and denies awakening with morning jaw pain. He denies being bothered by pain during the day and denies being awakened by pain during the night. He rarely wakes up feeling stiff in the morning. He rarely wakes up with sore or achy muscles. He denies waking up with pain in the neck, spine or other joints. He goes to bed at 9:30 p.m. on both weekdays and weekends. It takes him 15 minutes to fall asleep. He wakes up 3-4 times throughout the night to urinate. He is able to fall back asleep within 5-10 minutes. He wakes up between 6-7 a.m. on both weekdays and weekends. He typically gets 6-7 hours of sleep per night. He will stay in bed for 30-60 minutes after waking up in the morning. He currently lives with his and 2 children. He does not consume any caffeinated beverages within 2 hours of bedtime. He does not engage in physical exercise before bedtime. He will watch television before falling asleep. He denies taking naps in the afternoon or the evening. He denies consuming any caffeinated beverages throughout the day. He denies tobacco, alcohol and recreational drug use. [facility] Past Medical History Medical History Atrial fibrillation with rapid ventricular response Dyslipidemia Hypertension PAF (paroxysmal atrial fibrillation) Surgical History Surgical History H/O hand surgery left pinkie History of cardiac catheterization Clear cardiac catheterization following abnormal stress test. Family History Family History Mother CAD (coronary artery disease) Father S/P CABG x 3 S/P internal cardiac defibrillator procedure Asthma Congestive heart failure Social History Social History Social History: Surrogate medical decision maker: Beth Bergman, . 2 children Code status: Full code. Smoking status: Never smoker Alcohol intake: never Substance use: never Lack of Transportation: No Lack of Food: Never True Current Housing: I Have Housing Concerned About Future Housing: No Difficulty Paying Gas/Electr
[2022-07-25 14:14] VITALS: BMI 29.7
--- NOTE | 2022-12-08 09:19 | SLEEP ---
PT STATED HE WOULD LIKE TO SEE A MD THAT HEARS HIS CONCERNS ABOUT O2 DROPPING DR ROSADO AWARE
== END 2022-07-13 13:03 | disposition home or self-care (01) ==
LOC: ANHCSM 08:19
PROVIDERS: Visit Provider Internal Medicine Cardiovascular Disease
DX: G47.10 Hypersomnia, unspecified (principal); G47.33 Obstructive sleep apnea (adult) (pediatric)
CPT/HCPCS: 95800

== ENCOUNTER 2022-12-12 10:04 | Emergency (ER) | payer BC, SELFPAY ==
[2022-12-12] VITALS (10 sets, daily range): BP systolic 105–135; BP diastolic 68–92; PULSE 62–96; RESP 12–23; TEMP 36.7; O2SAT 96–99
--- NOTE | ~2022-12-12 | XR_ITS ---
Clinical Indication: Palpitations PA and lateral views of the chest: Comparison: 06/16/2022 Findings: The lungs are clear, without evidence of focal consolidation or pleural effusion. Cardiome diastinal silhouette is within normal limits. Bones and soft tissues are unremarkable. Impression: Normal chest. Reviewed, dictated and finalized at location . Impression: Normal chest.
--- NOTE | 2022-12-12 10:05 | ECG_ITS ---
Measurements Intervals [place] Rate: 92 P: [place]: 0 QRS: -30 QRSD: 137 T: 24 QT: 365 QTc: 453 Interpretive Statements SINUS RHYTHM WITH FIRST-DEGREE AV BLOCK AND PACS INTRAVENTRICULAR CONDUCTION DELAY [130+ ms QRS DURATION] LEFTWARD AXIS ABNORMAL ECG COMPARED TO ECG 06/16/2022 10:19:55 HEART RATE IS INCREASED AND ATRIAL ECTOPIC ACTIVITY IS NOTED Electronically Signed On 12-12-2022 13:23:17 CDT by Dre Fischer M.D.
[2022-12-12 10:25] LABS: Basophils Absolute Auto 0.1 K/mm3 (0.0-0.1); Basophils Percent Auto 0.9 % (0.2-1.2); Eosinophils Absolute Auto 0.1 K/mm3 (0-0.3); Eosinophils Percent Auto 0.7 % (0-4.4); Hematocrit 45.1 % (42.0-52.0); Hemoglobin 14.9 g/dL (14.0-18.0); Immature Granulocyte Absolute 0.02 K/mm3 (0.00-0.031); Immature Granulocyte Percent A 0.3 % (0-0.5); Lymphocytes Absolute Auto 0.91 K/mm3 (0.9-3.2); Lymphocytes Percent Auto 12.9 % (18.3-44.2); Mean Corpuscular Hemoglobin 31.7 pg (26-34); Mean Platelet Volume 8.5 fl (7.4-10.4); Monocytes Absolute Auto 0.5 K/mm3 (0.1-0.6); Monocytes Percent Auto 6.5 % (2.6-8.5); Neutrophils Absolute Auto 5.5 K/mm3 (1.3-6.7); Neutrophils Percent Auto 78.7 % (45.5-73.1); Platelet Count Result 208 k/mm3 (150-375); Red Cell Distribution Width 12.3 % (11.5-14.5)
[2022-12-12 10:35] LABS: Alanine Aminotransferase 72 U/L (6-50); Albumin Level 4.7 g/dL (3.5-5.1); Alkaline Phosphatase 89 U/L (38-126); Anion Gap 6 mmol/L (8-16); Aspartate Amino Transferase 45 U/L (17-59); Bilirubin,Total 0.6 mg/dL (0.2-1.3); Blood Urea Nitrogen 25 mg/dL (9-20); Calcium 9.4 mg/dL (8.4-10.2); Carbon Dioxide 25 mmol/L (22-30); Chloride 101 mmol/L (98-107); Estimated CRCL calculation 74 ml/min; Estimated Glomerular Filt Rate > 60; Glucose 160 mg/dL (65-110); Lipase 160 U/L (23-300); Sodium 132 mmol/L (137-145)
[2022-12-12 10:37] LABS: INR 0.9; Partial Thromboplastin Time 23.9 SECONDS (22.3-36.8); Prothrombin Time 12.8 Seconds (11.1-14.7)
[2022-12-12 10:47] LABS: Troponin I < 0.012 ng/mL (0.000-0.034)
--- NOTE | 2022-12-12 11:21 | ECG_ITS ---
Measurements Intervals [place] Rate: 74 P: 27 [place]: 204 QRS: -32 QRSD: 135 T: 8 QT: 389 QTc: 432 Interpretive Statements SINUS RHYTHM WITH FIRST-DEGREE AV BLOCK MARKED LEFT AXIS DEVIATION [QRS AXIS < -30] INTRAVENTRICULAR CONDUCTION DELAY [130+ ms QRS DURATION] ABNORMAL ECG COMPARED TO ECG 12/12/2022 10:08:29 ATRIAL ECTOPIC ACTIVITY IS NOT CURRENTLY DEMONSTRATED Electronically Signed On 12-12-2022 13:26:23 CDT by Dre Fischer M.D.
--- NOTE | 2022-12-12 11:34 | ED.ARRPALP ---
HPI - Arrhythmia/Palpitations General Chief Complaint: Arrhythmia/Palpitations Stated Complaint: im in afib Time Seen by Provider: 12/12/22 11:33 Source: patient Mode of arrival: ambulatory Limitations: no limitations History of Present Illness HPI narrative: Patient had a stressful phone call this morning subsequently started feeling that his A-fib is coming back. He denies headache, lightheadedness, shortness of breath or chest pain. He cannot explain his feeling. History of atrial fibrillation on flecainide 150 mg twice a day Related Data Allergies Allergy/AdvReac Type Severity Reaction Status Date / Time No Known Allergies Allergy Verified 09/18/22 13:09 Review of Systems Review of Systems: All systems reviewed & are unremarkable except as noted in HPI and below PMFSH Past Medical History Medical History Atrial fibrillation with rapid ventricular response Dyslipidemia Hypertension PAF (paroxysmal atrial fibrillation) Surgical History Surgical History H/O hand surgery left pinkie History of cardiac catheterization Clear cardiac catheterization following abnormal stress test. Family History Family History Mother , heart disease CAD (coronary artery disease) Father S/P CABG x 3 S/P internal cardiac defibrillator procedure Asthma Congestive heart failure Social History Social History Social History: Surrogate medical decision maker: Beth Bergman, . 2 children Code status: Full code. Smoking status: Never smoker Alcohol intake: never Substance use: never Lack of Transportation: No Lack of Food: Never True Current Housing: I Have Housing Concerned About Future Housing: No Difficulty Paying Gas/Electric Bills: No Difficulty Paying for Meds: No Currently Unemployed: No Education: Master's Degree or Higher Difficulty w/ Childcare or Family Care: No Additional living arrangements comments: The patient is recently moved to the area from just outside of [place]. 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 Musculoskeletal: Normal range of motion, nontender back Neurologic: Alert and oriented ?3, HIDE HOUSE SUPERVISOR is normal as tested, no gross motor deficit Course Reevaluation(s) Reevaluation #1: Patient's symptoms resolved within few minutes on arrival to the ED, currently monitor showing normal sinus rhythm compared to atrial fibrillation on arrival. Patient is asymptomatic and ready to go home. Date: 12/12/22 Time: 11:51 Reevaluation #2: DR LANG agreed with the plan to discharge the patient and to continue flecainide twice a day Date: 12/12/22 Time: 11:55 Vital Signs Vital signs: Vital Signs Temperature 36.7 C 12/12/22 10:05 Pulse Rate 62 12/12/22 10:05 Respiratory Rate 17 12/12/22 10:05 Blood Pressure 135/92 H 12/12/22 10:05 Pulse Oximetry 98 12/12/22 10:05 Oxygen
== END 2022-12-12 11:57 | disposition home or self-care (01) ==
PROVIDERS: Emergency Provider Emergency Medicine
DX: I48.0 Paroxysmal atrial fibrillation (principal); F41.9 Anxiety disorder, unspecified; I10 Essential (primary) hypertension; E78.5 Hyperlipidemia, unspecified; Z79.82 Long term (current) use of aspirin; Z79.899 Other long term (current) drug therapy; I45.9 Conduction disorder, unspecified; I44.0 Atrioventricular block, first degree
CPT/HCPCS: 36415; 71046; 80053; 83690; 84484; 85025; 85610; 85730; 93005; 99284

== ENCOUNTER 2023-01-30 08:20 | Outpatient (CLI) | payer BC, SELFPAY ==
--- NOTE | 2023-02-23 13:58 | WPDSLEEPSTUD ---
Sleep Study Date of Study: 01/30/23 Ordering Provider: Philomena Aguirre MD Interpreting Physician: Chacha Gleason DO Sleep Study Type: Split Polysomnogram Height: 1.85 m Weight: 104.326 kg Body Mass Index: 30.3 Neck Circumference (inches): 18 [place]: 2 Reason for Sleep Study The patient had a WatchPAT home sleep test on 07/12/2022 that showed an overall AHI of 7.6 with desaturation down to 85%. The patient bought an AutoPAP out of pocket and uses it for about 5 days with no clinical improvement. Sleep History The patient is a 58-year-old male with atrial fibrillation, hyperlipidemia and hypertension that had a sleep study ordered by his pharmaceutical assistant for evaluation of sleep apnea.? The patient denies awakening from sleep short of breath.? He denies awakening at night with heartburn, belching or cough.? He occasionally snores but it is rarely loud enough that others complain.? He denies having trouble sleeping when he has a cold.? He denies waking up gasping for air throughout the night.? He denies having breathing problems at night observed by himself or others.? He denies sweating excessively at night.? He denies having heart palpitations or irregular heartbeats during the night.? He rarely falls asleep during the day and never while driving.? He denies sleep paralysis, cataplexy and hypnagogic / hypnopompic hallucinations.? He denies having trouble at school or work due to sleepiness.? He denies feeling afraid of going to sleep.? He rarely has nightmares.? He occasionally remembers his dreams.? He occasionally has thoughts racing through his mind.? He rarely feels sad or depressed.? He frequently has anxiety.? He denies having muscular tension.? He denies noticing parts of his body jerk.? He denies kicking during the night.? He denies having crawling and aching feelings in his legs as well as leg pain during the night.? He denies grinding his teeth during sleep and denies awakening with morning jaw pain.? He denies being bothered by pain during the day and denies being awakened by pain during the night.? He rarely wakes up feeling stiff in the morning.? He rarely wakes up with sore or achy muscles.? He denies waking up with pain in the neck, spine or other joints.? He goes to bed at 9:30 p.m. on both weekdays and weekends.? It takes him 15 minutes to fall asleep.? He wakes up 3-4 times throughout the night to urinate.? He is able to fall back asleep within 5-10 minutes.? He wakes up between 6-7 a.m. on both weekdays and weekends.? He typically gets 6-7 hours of sleep per night.? He will stay in bed for 30-60 minutes after waking up in the morning.? He currently lives with his and 2 children.? He does not consume any caffeinated beverages within 2 hours of bedtime.? He does not engage in physical exercise before bedtime.? He will watch television before falling asleep.? He denies taking naps in the afternoon or the evening.? He denies consuming any caffeinated beverages throughout the day.? He denies tobacco, alcohol and recreational drug use. [facility] Past Medical History Medical History Atrial fibrillation with rapid ventricular response BMI 30.0-30.9,adult DM type 2 (diabetes mellitus, type 2) Dyslipidemia Encounter to establish care Hypertension On senior living drug therapy PAF (paroxysmal atrial fibrillation) Surgical History Surgical History H/O hand surgery left pinkie History of cardiac catheterization Clear cardiac catheterization following abnormal stress test. Family History Family History Mother , heart disease CAD (coronary artery disease) Father S/P CABG x 3 S/P internal cardiac defibrillator procedure Asthma Congestive heart failure Social History Social History Social History:
[2023-02-23 13:59] VITALS: BMI 30.3
== END 2023-01-31 07:08 | disposition home or self-care (01) ==
LOC: ANHCSM 08:21
PROVIDERS: Visit Provider Internal Medicine Critical Care Medicine
DX: G47.33 Obstructive sleep apnea (adult) (pediatric) (principal); G47.39 Other sleep apnea; G47.61 Periodic limb movement disorder
CPT/HCPCS: 95811

== ENCOUNTER 2023-03-17 21:08 | Emergency (ER) | payer BC, SELFPAY ==
--- NOTE | ~2023-03-17 | XR_ITS ---
EXAMINATION: XR chest 2V DATE: 03/17/2023 22:13 INDICATION: Hypertension. Abnormal electrocardiogram. TECHNIQUE: Frontal and lateral views of the chest were obtained. COMPARISON: Chest 2 views 12/12/2022 FINDINGS: There is no pneumonia, pleural effusion, or pneumothorax. The heart size is normal. There i s mild chronic anterior wedging of a midthoracic vertebral body. IMPRESSION: 1. No acute cardiopulmonary disease. Reviewed, dictated and finalized at location E. CTOR OF PERSONNEL
[2023-03-17 21:15] VITALS: BP 168/101; PULSE 82; RESP 18; TEMP 36.6; O2SAT 97
--- NOTE | 2023-03-17 21:18 | ECG_ITS ---
Measurements Intervals [place] Rate: 75 P: 51 WV: 193 QRS: -51 QRSD: 140 T: -17 QT: 407 QTc: 457 Interpretive Statements SINUS RHYTHM INTRAVENTRICULAR CONDUCTION DELAY CANNOT RULE OUT SEPTAL INFARCT, AGE INDETERMINATE BORDERLINE ST-T WAVE ABNORMALITY- DIFFUSE LEADS ABNORMAL ECG COMPARED TO ECG 12/12/2022 11:24:54 NO SIGNIFICANT CHANGES Electronically Signed On 03-18-2023 6:26:24 HAIRSPRING ASSEMBLER by Anupam Arias D.O.
[2023-03-17 21:49] LABS: Basophils Absolute Auto 0.1 K/mm3 (0.0-0.1); Basophils Percent Auto 0.9 % (0.2-1.2); Eosinophils Absolute Auto 0.2 K/mm3 (0-0.3); Eosinophils Percent Auto 3.1 % (0-4.4); Hematocrit 43.7 % (42.0-52.0); Hemoglobin 14.3 g/dL (14.0-18.0); Immature Granulocyte Absolute 0.01 K/mm3 (0.00-0.031); Immature Granulocyte Percent A 0.2 % (0-0.5); Lymphocytes Percent Auto 31.1 % (18.3-44.2); Mean Corpuscular HGB Conc 32.7 g/dl (32-36); Mean Corpuscular Hemoglobin 31.5 pg (26-34); Mean Corpuscular Volume 96.3 fl (80-100); Mean Platelet Volume 9.3 fl (7.4-10.4); Monocytes Absolute Auto 0.6 K/mm3 (0.1-0.6); Monocytes Percent Auto 10.4 % (2.6-8.5); Neutrophils Absolute Auto 3.2 K/mm3 (1.3-6.7); Neutrophils Percent Auto 54.3 % (45.5-73.1); Platelet Count Result 188 k/mm3 (150-375); Red Blood Count 4.54 M/mm3 (4.6-6.20); Red Cell Distribution Width 12.9 % (11.5-14.5); White Blood Count 5.8 K/mm3 (4.5-10.0)
[2023-03-17 21:59] LABS: Alanine Aminotransferase 151 U/L (6-50); Albumin Level 4.6 g/dL (3.5-5.1); Alkaline Phosphatase 120 U/L (38-126); Anion Gap 11 mmol/L (8-16); Aspartate Amino Transferase 86 U/L (17-59); Bilirubin,Total 0.5 mg/dL (0.2-1.3); Blood Urea Nitrogen 26 mg/dL (9-20); Calcium 9.2 mg/dL (8.4-10.2); Carbon Dioxide 24 mmol/L (22-30); Chloride 104 mmol/L (98-107); Estimated CRCL calculation 68 ml/min; Estimated Glomerular Filt Rate > 60; Glucose 113 mg/dL (65-110); Lipase 237 U/L (23-300); Potassium 3.5 mmol/L (3.4-5.0); Sodium 139 mmol/L (137-145)
[2023-03-17 22:03] LABS: INR 0.9; Prothrombin Time 12.4 Seconds (11.1-14.7)
[2023-03-17 22:04] LABS: Partial Thromboplastin Time 26.9 SECONDS (22.3-36.8)
[2023-03-17 22:10] LABS: Troponin I < 0.012 ng/mL (0.000-0.034)
[2023-03-17 22:16] VITALS: BP 159/91; PULSE 68; RESP 16; O2SAT 95
[2023-03-17 22:30] VITALS: BP 137/80; PULSE 68; RESP 16; O2SAT 95
[2023-03-17 22:45] VITALS: BP 130/81; PULSE 68; RESP 16; O2SAT 95
--- NOTE | 2023-03-17 23:20 | ED.RECABL ---
HPI - Recheck/Abnormal Lab/Rx General Chief Complaint: Recheck/Abnormal Lab/Rx Stated Complaint: HTN spiked this afternoon Time Seen by Provider: 03/17/23 22:28 Source: patient Mode of arrival: ambulatory Limitations: no limitations History of Present Illness HPI narrative: Patient is a 58-year-old male, with past medical history of hypertension, who presents ED with report of elevated blood pressures. Patient reports history of hypertension and takes metoprolol and lisinopril. He checks his blood pressure twice daily. He states his blood pressure was normal this morning. He developed a very mild headache around 4:00 p.m. and decided to check his blood pressure again. He noted to be elevated into the 160/100. He rested for a bit and checked his blood pressure again and it was still elevated. He then prompted here. Patient reports compliance with his medications. Denies any further headache. Denies chest pain, shortness of breath, dizziness, lightheadedness, vision changes, numbness, weakness. Related Data Home Medications Medication Instructions Recorded Confirmed cholecalciferol (vitamin D3) 100 100 mcg PO DAILY 02/16/23 02/27/23 mcg (4,000 unit) tablet Allergies Allergy/AdvReac Type Severity Reaction Status Date / Time No Known Allergies Allergy Verified 03/17/23 22:19 Review of Systems Review of Systems: CONSTITUTIONAL: Denies fever, chills, or sweats. EYES: Denies vision changes. CARDIOVASCULAR: Denies chest pain. RESPIRATORY: Denies dyspnea. GASTROINTESTINAL: Denies abdominal pain, nausea, vomiting. NEUROLOGIC: See HPI. All systems reviewed & are unremarkable except as noted in HPI and below PMFSH Past Medical History Medical History Atrial fibrillation with rapid ventricular response BMI 30.0-30.9,adult DM type 2 (diabetes mellitus, type 2) Dyslipidemia Encounter to establish care Hypertension On tank terminal gauger drug therapy PAF (paroxysmal atrial fibrillation) Surgical History Surgical History H/O hand surgery left pinkie History of cardiac catheterization Clear cardiac catheterization following abnormal stress test. Family History Family History Mother , heart disease CAD (coronary artery disease) Father S/P CABG x 3 S/P internal cardiac defibrillator procedure Asthma Congestive heart failure Social History Social History Social History: Surrogate medical decision maker: Beth Bergman, . 2 children Code status: Full code. Smoking status: Never smoker Alcohol intake: never Substance use: never Lack of Transportation: No Lack of Food: Never True Current Housing: I Have Housing Concerned About Future Housing: No Difficulty Paying Gas/Electric Bills: No Difficulty Paying for Meds: No Currently Unemployed: No Education: Master's Degree or Higher Difficulty w/ Childcare or Family Care: No Additional living arrangements comments: The patient is recently moved to the area from just outside of [place]. Occupation/Education: retired Additional occupation/education comments: Retired software. Gender identity (if verbalized by the patient): Male Spiritual care concerns: No Exam Narrative: GENERAL: Well appearing, well-nourished, non-toxic, in no acute distress. HEAD: Normocephalic, atraumatic. NECK: Supple. No adenopathy, no masses. RESPIRATORY: Airway patent, respirations nonlabored. Clear to auscultation bilaterally, no rales, rhonchi, wheezing. CARDIOVASCULAR: Regular rate and rhythm without murmurs, rubs, or gallops. Radial pulses 2+ and equal bilaterally. MUSCULOSKELETAL: Moves all extremities. No gross deformities. SKIN: Warm, dry, normal color. No rashes. NEURO: A&O X3. Speec
== END 2023-03-18 00:01 | disposition home or self-care (01) ==
PROVIDERS: Emergency Medicine; Emergency Provider Physician Assistant; PCP Internal Medicine
DX: I10 Essential (primary) hypertension (principal); I48.0 Paroxysmal atrial fibrillation; E11.9 Type 2 diabetes mellitus without complications; E78.5 Hyperlipidemia, unspecified; Z79.82 Long term (current) use of aspirin; Z79.84 Long term (current) use of oral hypoglycemic drugs
CPT/HCPCS: 36415; 71046; 80053; 83690; 84484; 85025; 85610; 85730; 93005; 99284

== ENCOUNTER 2024-02-21 15:24 | Emergency (ER) | payer BC, SELFPAY ==
[2024-02-21] VITALS (17 sets, daily range): BP systolic 113–176; BP diastolic 69–93; PULSE 57–76; RESP 14–29; TEMP 36.4–36.8; O2SAT 92–98
--- NOTE | ~2024-02-21 | XR_ITS ---
EXAMINATION: XR chest 2V DATE: 02/21/2024 16:39 INDICATION: Dizziness. TECHNIQUE: Frontal and lateral views of the chest were obtained. COMPARISON: Chest 2 views 03/17/2023 FINDINGS: There is no pneumonia, pleural effusion, or pneumothorax. The heart size is normal. IMPRESSION: 1. No acute cardiopulmonary disease. Reviewed, dictated and finalized at location A.
--- NOTE | 2024-02-21 15:33 | ECG_ITS ---
Test Date: 2024-02-21 15:37:28 Measurements Intervals [place] Rate: 74 P: 53 PA: 176 QRS: -48 QRSD: 137 T: -16 QT: 355 QTc: 394 Interpretive Statements SINUS RHYTHM INTRAVENTRICULAR CONDUCTION DELAY [130+ ms QRS DURATION] POSSIBLE ANTERIOR MYOCARDIAL INFARCTION , OF INDETERMINATE AGE [30 ms Q WAVE IN V3/V4, OR R < 0.2 mV IN V4] No previous ECG available for comparison Electronically Signed On 02-22-2024 13:31:42 CDT by Virgilio Ayon M.D.
[2024-02-21 15:56] LABS: Basophils Absolute Auto 0.1 K/mm3 (0.0-0.1); Basophils Percent Auto 0.7 % (0.2-1.2); Eosinophils Absolute Auto 0.1 K/mm3 (0-0.3); Eosinophils Percent Auto 1.6 % (0-4.4); Hematocrit 47.5 % (42.0-52.0); Hemoglobin 15.7 g/dL (14.0-18.0); Immature Granulocyte Absolute 0.02 K/mm3 (0.00-0.031); Immature Granulocyte Percent A 0.3 % (0-0.5); Lymphocytes Absolute Auto 1.69 K/mm3 (0.9-3.2); Lymphocytes Percent Auto 24.8 % (18.3-44.2); Mean Corpuscular HGB Conc 33.1 g/dl (32-36); Mean Corpuscular Hemoglobin 31.8 pg (26-34); Mean Corpuscular Volume 96.2 fl (80-100); Mean Platelet Volume 8.8 fl (7.4-10.4); Monocytes Absolute Auto 0.5 K/mm3 (0.1-0.6); Neutrophils Absolute Auto 4.5 K/mm3 (1.3-6.7); Neutrophils Percent Auto 65.6 % (45.5-73.1); Platelet Count Result 219 k/mm3 (150-375); Red Blood Count 4.94 M/mm3 (4.6-6.20); Red Cell Distribution Width 14.2 % (11.5-14.5); White Blood Count 6.8 K/mm3 (4.5-10.0)
[2024-02-21 16:19] LABS: Alanine Aminotransferase 44 U/L (6-50); Albumin Level 5.2 g/dL (3.5-5.1); Alkaline Phosphatase 87 U/L (38-126); Anion Gap 12 mmol/L (4-12); Aspartate Amino Transferase 51 U/L (17-59); Bilirubin,Total 0.7 mg/dL (0.2-1.3); Blood Urea Nitrogen 29 mg/dL (9-20); Calcium 9.8 mg/dL (8.4-10.2); Carbon Dioxide 24 mmol/L (22-30); Chloride 100 mmol/L (98-107); Estimated CRCL calculation 88 ml/min; Estimated Glomerular Filt Rate > 60; Glucose 96 mg/dL (65-110); Potassium 4.1 mmol/L (3.4-5.0); Sodium 136 mmol/L (137-145)
--- NOTE | 2024-02-21 17:40 | ED.DIZZY ---
HPI - Dizziness General Chief Complaint: Dizziness Stated Complaint: dizzy Time Seen by Provider: 02/21/24 16:56 History of Present Illness HPI Narrative: Patient is a 59-year-old male who presents to the ER today with complaints of dizziness that started yesterday morning. He reports he had approximately 5 episodes of dizziness yesterday. Today he continued to experience intermittent bouts of dizziness with 1 significant episode occurring when he got into his vehicle prior to coming to the ER for evaluation. He denies any loss of consciousness. Patient reports he has history of AFib, hypertension, type 2 diabetes. He reports he has never had these episodes prior to yesterday. Patient has a primary care provider but he has not seen him for approximately 6 months. He reports he takes all his medications as prescribed and has a diversity intern. Patient denies chest pain, shortness a breath, abdominal pain, one-sided weakness/numbness/tingling. Related Data Home Medications Medication Instructions Recorded Confirmed cholecalciferol (vitamin D3) 50 50 mcg PO DAILY 08/14/23 12/26/23 mcg (2,000 unit) capsule coenzyme Q10 75 mg capsule (Ultra 75 mg PO DAILY 12/26/23 12/26/23 CoQ10) Orthomolecular Methyl Cpg 1 tablet .Route DAILY 01/17/24 lisinopril 10 mg tablet 10 mg PO BID 01/17/24 omega-3 fatty acids 1,000 mg 2,000 mg PO DAILY 01/17/24 capsule Allergies Allergy/AdvReac Type Severity Reaction Status Date / Time [id number]-[id number] Reductase Allergy Muscle Pain Verified 01/17/24 14:31 Inhibitor Review of Systems Review of Systems: All systems reviewed & are unremarkable except as noted in HPI and below PMFSH Past Medical History Medical History Atrial fibrillation with rapid ventricular response BMI 28.0-28.9,adult BMI 30.0-30.9,adult DM type 2 (diabetes mellitus, type 2) Dyslipidemia Encounter for routine adult health examination with abnormal findings Encounter to establish care Follow up Hyperlipidemia Hypertension Nocturia On senior living drug therapy PAF (paroxysmal atrial fibrillation) Prostate cancer screening Surgical History Surgical History H/O hand surgery left pinkie History of cardiac catheterization Clear cardiac catheterization following abnormal stress test. Family History Family History Mother , heart disease CAD (coronary artery disease) Father S/P CABG x 3 S/P internal cardiac defibrillator procedure Asthma Congestive heart failure Social History Social History Social History: Surrogate medical decision maker: Beth Bergman, . 2 children Code status: Full code. Smoking status: Never smoker Alcohol intake: never Substance use: never Lack of Transportation: No Lack of Food: Never True Current Housing: I Have Housing Concerned About Future Housing: No Difficulty Paying Gas/Electric Bills: No Difficulty Paying for Meds: No Currently Unemployed: No Education: Master's Degree or Higher Difficulty w/ Childcare or Family Care: No Additional living arrangements comments: The patient is recently moved to the area from just outside of [place]. Occupation/Education: retired Additional occupation/education comments: Retired software. Gender identity (if verbalized by the patient): Male Spiritual care concerns: No Exam Narrative: GENERAL: Well appearing, well-nourished, non-toxic, in no acute distress. HEAD: Normocephalic, atraumatic. NECK: Supple. No adenopathy, no masses. RESPIRATORY: Airway patent, respirations nonlabored. Clear to auscultation bilaterally, no rales, rhonchi, wheezing. CARDIOVASCULAR: Regular rate and rhythm without murmurs, rubs, or gallops. Peripheral pulses 2+
[2024-02-21 19:25] LABS: Troponin I < 0.012 ng/mL (0.000-0.034)
[2024-02-21 19:26] LABS: Magnesium 2.1 mg/dL (1.6-2.3)
[2024-02-21 19:36] LABS: Add Urine Microscopic? NO; Appearance Urine Clear (Clear); Bilirubin Urine Negative (Negative); Blood Urine Negative (Negative); Color Urine Yellow (Yellow); Glucose Urine UA 3+ mg/dL (Negative); Ketones Urine 1+ mg/dL (Negative); Leukocyte Esterase Ur Negative LEU/UL (Negative); Nitrate Urine Negative (Negative); Protein Urine Negative (Negative); Specific Grav Ur 1.033 (1.001-1.035); Urobilinogen Urine 0.2 mg/dL (<2.0); pH Urine 5.5 (5.0-9.0)
[2024-02-21 19:59] LABS: Amphetamine Screen Urine Negative (Negative); Barbiturate Screen Urine Negative (Negative); Benzodiazepines Screen Urine Negative (Negative); Cannabinoid Screen Urine Negative (Negative); Cocaine Screen Urine Negative (Negative); Methadone Screen Urine Negative (Negative); Opiate Screen Urine Negative (Negative); Phencyclidine Screen Urine Negative (Negative)
== END 2024-02-21 21:04 | disposition home or self-care (01) ==
PROVIDERS: Student in an Organized Health Care Education/Training Program; Emergency Provider Registered Nurse; PCP Internal Medicine
DX: R42 Dizziness and giddiness (principal); I48.0 Paroxysmal atrial fibrillation; I10 Essential (primary) hypertension; E78.5 Hyperlipidemia, unspecified; E11.9 Type 2 diabetes mellitus without complications; E86.0 Dehydration; Z79.82 Long term (current) use of aspirin; Z79.899 Other long term (current) drug therapy
CPT/HCPCS: 36415; 71046; 80053; 80307; 81003; 83036; 83735; 84484; 85025; 93005; 99284

== ENCOUNTER 2025-03-26 19:54 | Emergency (ER) | payer BC, SELFPAY ==
--- NOTE | ~2025-03-26 | XR_ITS ---
EXAMINATION: XR chest 2V DATE: 03/26/2025 20:27 INDICATION: Palpitation. Tachycardia. TECHNIQUE: Frontal and lateral views of the chest were obtained. COMPARISON: Chest x-ray dated 02/21/2024 FINDINGS: Heart size is normal. Moderate atherosclerotic aorta. Lungs are clear of acute processes. IMPRESSION: 1. No acute pulmonary findings. Reviewed, dictated and finalized at location T. RBERATORY FURNACE OPERATOR
--- NOTE | 2025-03-26 19:55 | ECG_ITS ---
Test Date: 2025-03-26 20:14:43 Measurements Intervals [place] Rate: 87 P: 38 UT: 186 QRS: -54 QRSD: 136 T: 48 QT: 403 QTc: 486 Interpretive Statements SINUS RHYTHM LEFT ANTERIOR SUPERIOR HEMIBLOCK POSSIBLE PREVIOUS ANTERIOR INFARCTION ABNORMAL ECG Compared to ECG 02/21/2024 15:37:28 No significant changes Electronically Signed On 03-27-2025 11:22:05 SENIOR UI WEB DEVELOPER by Dre Fischer M.D.
--- OUTSIDE RECORDS SUMMARY | 2025-03-26 19:57 | XMS_ITS | Encounter Summary ---
Author Organization [facility] Address [address] [place]: Epic Prelude ADT [place] [address] Care Team Providers Care Fiberglass Boat Builder Name Role Phone Karolina Carpenter DO Primary Care Provider [phone] Encounter Details Date Type Department Care Team (Late st Contact Info) Description 05/14/1995 Outpatient Historical Artur Noe Social History Tobacco Use Types Packs/Day Years Used Date Smoking Tobacco: Never Assessed Sex and Gender Information Value Date Recorded Sex Assigned at Not on file Legal Sex Male 5:07 AM FRAME STRIPPER Gender Identity Not on file Sexual Orientation Not on file documented as of this encounter Plan of Treatment Not on file documented as of this encounter Visit Diagnoses Not on filedocumented in this encounter Care Teams Fiberglass Boat Builder Relationship Specialty Start Date End Date Karolina Carpenter DO [address] [facility] [place] [phone] PCP - General Family Practice 11/19/18 documented as of this encounter
--- OUTSIDE RECORDS SUMMARY | 2025-03-26 19:57 | XMS_ITS | Patient Health Record ---
Author Organization [facility] Address [address] [place] [address] Care Team Providers Care Fruit Grower Name Role Phone Devon Mccall Primary Care Provider Malvin Ellis MD Unavailable Unavailable Reason For Referral No Information Plan Of Treatment No Information
--- OUTSIDE RECORDS SUMMARY | 2025-03-26 19:57 | XMS_ITS | Clinical Summary ---
Author Organization [facility] Address [facility] [place] [address] Care Team Providers Care Executor Of Estate Name Role Phone Wellington Perez MD Primary Care Provider [phone] Anupam Arias DO Unavailable Encounters Date Type Department Care Team Description 03/09/2025 Stance Message Enc [facility] [address] [phone] [place], [facility] Provider CARDIOLOGY CONSULT 03/03/2025 Telephone [facility] [address] [address] Kaitlynn Thomas, Alyssa Appointment Request (Self ref) from Last 3 Months Social History Tobacco Use Types Packs/Day Years Used Date Smoking Tobacco: Never Assessed Sex and Gender Information Value Date Recorded Sex Assigned at Not on file Legal Sex Male 9:41 AM CDT Gender Identity Not on file Sexual Orientation Not on file Plan of Treatment Upcoming Encounters Date Type Department Care Team (Late st Contact Info) Description 04/09/2025 12:30 PM FEATHER MIXER Office Visit [facility] [address] [phone] Halie Mccann MD [address] [place] [phone] Health Maintenance Due Date Last Done Comments Colorectal Cancer Screening Colonoscopy (10 Years) 1965 Annual Physical 02/16/1968 Hepatitis C 1983 DTaP, Tdap and Td Vaccines ( 1 - Tdap) 02/16/1984 Pneumococcal Vaccine: 50+ Ye ars (1 of 1 - PCV) 2015 Zoster Vaccines (1 of 2) 2015 COVID-19 Vaccine (1 - 2024-2 6 season) 2025 Influenza Adult (#1) 2025 RSV Immunization or 60+ Years (1 - 1-dose 75+ series) 02/16/2040 Hepatitis A Vaccines Aged Out No long er eligible based on patient's age to complete this topic Meningococcal B Vaccine Aged Out No l onger eligible based on patient's age to complete this topic Meningococcal Vaccine Aged Out No rupa giovanna eligible based on patient's age to complete this topic RSV Immunizations Under 20 Months Aged Out No longer eligible based on patient's age to complete this topic Insurance [place] [address] [place] [address] Care Teams Executor Of Estate Relationship Specialty Start Date End Date Wellington Perez MD [address] [address] PCP - General INTERNAL MEDICINE 06/15/23 Anupam Arias DO [address] [place] [address] INTERNAL MEDICINE 03/04/25
--- OUTSIDE RECORDS SUMMARY | 2025-03-26 19:57 | XMS_ITS | Encounter Summary ---
Author Organization [facility] Address [address] [place]: Epic Prelude ADT [place] [address] Care Team Providers Care Lead Sprinkler Name Role Phone Karolina Carpenter DO Primary Care Provider [phone] Encounter Details Date Type Department Care Team (Late st Contact Info) Description 04/28/1994 Outpatient Historical Artur Noe Social History Tobacco Use Types Packs/Day Years Used Date Smoking Tobacco: Never Assessed Sex and Gender Information Value Date Recorded Sex Assigned at Not on file Legal Sex Male 5:07 AM EXHIBIT PREPARATOR Gender Identity Not on file Sexual Orientation Not on file documented as of this encounter Plan of Treatment Not on file documented as of this encounter Visit Diagnoses Not on filedocumented in this encounter Care Teams Lead Sprinkler Relationship Specialty Start Date End Date Karolina Carpenter DO [address] [facility] [place] [address] PCP - General Family Practice 11/19/18 documented as of this encounter
--- OUTSIDE RECORDS SUMMARY | 2025-03-26 19:57 | XMS_ITS | Encounter Summary ---
Author Organization [facility] Address [address] [place] [id number] Care Team Providers Care Family Support Coordinator Name Role Phone Wellington Perez MD Primary Care Provider Anupam Arias DO Unavailable Encounter Details Date Type Department Care Team (Late st Contact Info) Description 03/09/2025 [facility] Message Enc [facility] [address] [address] [facility], [facility] Provider CARDIOLOGY CONSULT Social History Tobacco Use Types Packs/Day Years Used Date Smoking Tobacco: Never Assessed Sex and Gender Information Value Date Recorded Sex Assigned at Not on file Legal Sex Male 9:41 AM CDT Gender Identity Not on file Sexual Orientation Not on file documented as of this encounter Plan of Treatment Upcoming Encounters Date Type Department Care Team (Late Contact Info) Description 04/09/2025 12:30 PM LAVATORY ATTENDANT Office Visit [facility] [address] [address] Halie Mccann MD [address] [place] [phone] documented as of this encounter Visit Diagnoses Not on filedocumented in this encounter Care Teams Family Support Coordinator Relationship Specialty Start Date End Date Wellington Perez MD [address] [place] [phone] PCP - General INTERNAL MEDICINE 06/15/23 Anupam Arias DO [address] [facility] [address] [place] [address] INTERNAL MEDICINE 03/04/25 documented as of this encounter
--- OUTSIDE RECORDS SUMMARY | 2025-03-26 19:57 | XMS_ITS | Clinical Summary ---
Author Organization [facility] [address] [facility] Address [address] [place] [address] Care Team Providers Care Account Services Specialist Name Role Phone PaulineKarolina orozco Primary Care Provider Allergies Active Allergy Reactions Criticality Noted Date Comments Ragweed Rash Low 02/10/2016 Medications aspirin (ECOTRIN EC) 81 mg Tablet, Delayed Release (E.C.) Take 81 mg by mouth daily. Active Multivitamins with Fluoride (MULTI-VITAMINS /FLUORIDE ORAL) Take 1 Tablet by mouth daily. Active Saw [place] 500 mg Capsule Take 500 Capsules by mouth 2 times daily. 6 Active rosuvastatin (CRESTOR) 40 mg tablet Take 40 mg by mouth daily at bedtime. 8 Active lisinopril (PRINIVIL) 10 mg tablet Take 10 mg by mouth daily. 9 Active VENTOLIN HFA 90 mcg/actuation inhaler Take 2 Puffs by inhalation every 6 hours as needed for Shortness of Breath. 9 Active metoprolol succinate (Toprol XL) 50 mg Extended Release 24 hour tablet Take 1 Tablet (50 mg) by mouth daily. 30 Tablet 1 Active Active Problems Problem Noted Date Diagnosed Date Abnormal stress test 05/06/2020 Overview (05/06/2020): Added automatically from request for surgery [id number] Lightheadedness 04/23/2020 Facial numbness 04/23/2020 Atherosclerosis of squaxin co ronary artery of squaxin heart without angina pectoris 04/22/2020 HTN (hypertension), benign 04/22/2020 Hypercholesteremia 04/22/2020 Social History Tobacco Use Types Packs/Day Years Used Date Smoking Tobacco: Never Smokeless Tobacco: Never Alcohol Use Standard Drinks/Week Comments Never 0 (1 standard drink = 0.6 oz pur e alcohol) Sex and Gender Information Value Date Recorded Sex Assigned at Not on file Legal Sex Male 5:07 AM DEVELOPMENT EXECUTIVE Gender Identity Not on file Sexual Orientation Not on file Last Filed Vital Signs Vital Sign Reading Time Taken Comments Blood Pressure 104/61 05/17/2020 10:03 AM DEVELOPMENT EXECUTIVE Pulse 64 05/17/2020 10:03 AM DEVELOPMENT EXECUTIVE Temperature 36.8 C (98.2 F) 05/17/2020 6:39 AM DEVELOPMENT EXECUTIVE Respiratory Rate 16 05/17/2020 10:0 3 AM DEVELOPMENT EXECUTIVE Oxygen Saturation 98% 05/17/2020 10: 03 AM DEVELOPMENT EXECUTIVE Inhaled Oxygen Concentration - - Weight 98.4 kg (216 lb 14.4 oz) 05/17/2020 6:37 AM DEVELOPMENT EXECUTIVE Height 185.4 cm (6' 1) 05/17/2020 6:37 AM DEVELOPMENT EXECUTIVE Body Mass Index 28.62 05/17/2020 6:37 AM DEVELOPMENT EXECUTIVE Plan of Treatment Health Maintenance Due Date Last Done Comments DIABETES ANNUAL FOOT EXAM 1983 DIABETES ANNUAL RETINAL EXAM 1983 DIABETES MICROALBUMIN ANNUAL SCREEN 1983 LDL CHOLESTEROL ANNUAL 1983 COLORECTAL SCREENING 2010 Colorectal Cancer Screening 2010 FIT-DNA Q 3 years 2010 FIT/FOBT Q 1 year 2010 Flex Sig/CT Colonography Q 5 years 2010 RSV VACCINE (60+ or ) (1 - Risk 50-74 years 1-dose series) 2015 ZOSTER VACCINE (1 of 2) 2015 DIABETES HBA1C Q 6 MONTHS 05/18/2017 11/15/2016 DTAP/TDAP/TD VACCINES (3 - T d or Tdap) 03/15/2023 03/15/2013, 07/08/2008 INFLUENZA VACCINE (#1) 2024 06/01/2016 HEPATITIS B VACCINES Aged Out No long er eligible based on patient's age to complete this topic Insurance BCBS BLUE ACCESS CHOICE Care Teams Account Services Specialist Relationship Specialty Start Date End Date Karolina Carpenter DO [address] [place] [address] PCP - General Family Practice 11/19/18
[2025-03-26 20:10] VITALS: BP 149/77; PULSE 91; TEMP 36.8; O2SAT 97
[2025-03-26 20:24] LABS: Hematocrit 43.1 % (42.0-52.0); Hemoglobin 14.4 g/dL (14.0-18.0); Immature Granulocyte Percent A 0.4 % (0-0.5); Lymphocytes Absolute Auto 1.22 K/mm3 (0.9-3.2); Mean Corpuscular HGB Conc 33.4 g/dl (32-36); Mean Corpuscular Hemoglobin 31.9 pg (26-34); Mean Corpuscular Volume 95.4 fl (80-100); Nucleated Red Blood Cells Absolute Auto 0.000 K/mm3 (0.0-0.012); Nucleated Red Blood Cells Perc 0.0 % (0.0-0.2); Platelet Count Result 192 k/mm3 (150-375); Red Blood Count 4.52 M/mm3 (4.6-6.20); White Blood Count 5.4 K/mm3 (4.5-10.0)
[2025-03-26 20:35] LABS: INR 0.9; Prothrombin Time 12.7 Seconds (11.1-14.7)
[2025-03-26 20:36] LABS: Partial Thromboplastin Time 25.7 Seconds (22.3-36.8)
[2025-03-26 20:40] LABS: Alanine Aminotransferase 42 U/L (6-50); Albumin Level 4.9 g/dL (3.5-5.1); Alkaline Phosphatase 53 U/L (38-126); Anion Gap 13 mmol/L (4-12); Aspartate Amino Transferase 45 U/L (17-59); Bilirubin,Total 0.5 mg/dL (0.2-1.3); Blood Urea Nitrogen 37 mg/dL (9-20); Calcium 9.2 mg/dL (8.4-10.2); Carbon Dioxide 22 mmol/L (22-30); Chloride 100 mmol/L (98-107); Estimated CRCL calculation 63 ml/min; Estimated Glomerular Filt Rate 50; Glucose 125 mg/dL (65-110); Lipase 112 U/L (23-300); Potassium 3.9 mmol/L (3.4-5.0); Sodium 135 mmol/L (137-145); Total Protein 7.7 g/dL (6.3-8.2)
[2025-03-26 20:47] LABS: Troponin I < 0.012 ng/mL (0.000-0.034)
[2025-03-27] VITALS: BP 135/87; PULSE 73; RESP 14; TEMP 36.9; O2SAT 95
--- NOTE | 2025-03-27 | ECG_ITS ---
Test Date: 2025-03-27 00:05:31 Measurements Intervals [place] Rate: 67 P: 0 UT: 184 QRS: -38 QRSD: 133 T: 17 QT: 430 QTc: 456 Interpretive Statements SINUS RHYTHM WITH OCCASIONAL SUPRAVENTRICULAR PREMATURE COMPLEXES LEFT AXIS DEVIATION [QRS AXIS < -30] INTRAVENTRICULAR CONDUCTION DELAY [130+ ms QRS DURATION] CONSIDER PREVIOUS ANTERIOR INFARCTION ABNORMAL ECG Compared to ECG 02/21/2024 15:37:28 NO DIFFERENCE Electronically Signed On 03-27-2025 07:57:12 ANIMAL RIDE ATTENDANT by Dre Fischer M.D.
[2025-03-27 00:16] VITALS: BP 137/87; PULSE 73; RESP 16; O2SAT 95
[2025-03-27 00:43] LABS: Troponin I < 0.012 ng/mL (0.000-0.034)
--- NOTE | 2025-03-27 01:31 | ED_ITS ---
HPI - Arrhythmia/Palpitations General Chief Complaint: Chest Pain Stated Complaint: discomfort sternum; hr and bp elevated; hx afib Time Seen by Provider: 03/27/25 01:00 History of Present Illness HPI narrative: 60-year-old male with a past medical history including paroxysmal atrial fibrillation on metoprolol and flecainide as well as baby aspirin for anticoagulation. Patient presents to the emergency department today as he was having episodes of palpitations today that started around 4:00 p.m. and lasted for several hours prior to being subsiding. [place] palpitations and elevated heart rate but not significantly elevated above 100 beats per minute. No fever chills. Had some substernal chest pain also resolved. No difficulty breathing, nausea, vomiting or back pain. Was otherwise in his normal state of health. Follows regularly with wind farm electrical systems designer Dr. Arias who is titrating his flecainide and metoprolol for his paroxysmal AFib. Patient states he also has a history of anxiety and feels like this could have been an anxiety attack as he gets very anxious about his health and heart history. Was otherwise in his normal state of health. Related Data Home Medications ?Medication ?Instructions ?Recorded ?Confirmed ?Last Taken ?Type Orthomolecular Methyl Cpg 1 tablet .Route DAILY 03/04/25 Unknown History tamsulosin 0.4 mg capsule 0.4 mg PO QHS 06/05/2403/04 Unknown History aspirin 81 mg tablet 81 mg PO DAILY 02/10/2502/05 Unknown History coenzyme Q10 75 mg capsule (Ultra 100 mg PO DAILY 11/2803/04/25 Unknown History CoQ10) flecainide 150 mg tablet 75 mg PO Q12H 03/04/2503/04 Unknown History metformin 500 mg tablet,extended 500 mg PO DAILY 03/0403/04/25 Unknown History release 24 hr (Glucophage XR) Allergies Allergy/AdvReac Type Severity Reaction Status Date / Time No Known Allergies Allergy Verified 03/26/25 19:57 Review of Systems 2 Review of Systems: As reviewed above in HPI [facility]LY [facility] Past Medical History Medical History Colon cancer screening BMI 31.0-31.9,adult Encounter for routine adult health examination without abnormal findings Encounter for preventive health examination Abnormal Heart Score CT Hyperlipidemia Encounter for routine adult health examination with abnormal findings Nocturia Prostate cancer screening BMI 28.0-28.9,adult Follow up DM type 2 (diabetes mellitus, type 2) On animal ecologist drug therapy BMI 30.0-30.9,adult Encounter to establish care PAF (paroxysmal atrial fibrillation) Hypertension Atrial fibrillation with rapid ventricular response Surgical History Surgical History H/O hand surgery left pinkie History of cardiac catheterization Clear cardiac catheterization following abnormal stress test. Family History Family History Mother , heart disease CAD (coronary artery disease) Father S/P CABG x 3 S/P internal cardiac defibrillator procedure Asthma Congestive heart failure Social History Social History Social History: Surrogate medical decision maker: Beth Bergman, . 2 children Code status: Full code. Smoking status: Never smoker Alcohol intake: never Substance use: never Lack of Transportation: No Lack of Food: Never True Current Housing: I Have Housing Concerned About Future Housing: No Difficulty Paying Gas/Electric Bills: No Difficulty Paying for Meds: No Currently Unemployed: No Education: Master's Degree or Higher Difficulty w/ Childcare or Family Care: No Additional living arrangements comments: The patient is recently moved to the area from just outside of [place]. Occupation/Education: retired Additional occupation/education comments: Retired software. Gender identity (if verbalized by the patient): Male Spiritual care concerns: No Exam 2 Narrative: GENERAL: [Well-appearing, well-nourished, and in no acute distress.] HEAD: [Normocephalic, atraumatic.] EYES: [PERRLA and EOMI.] ENT: Nares clear, no rhinorrhea or epistaxis. Mucous membranes moist. NECK: Supple. CHEST: [Clear to auscultation. No respiratory distress.] HEART: [Regular rate and rhythm]. No murmur heard. [Normal peripheral pulses.] ABDOMEN: [Soft, nondistended], [nontender], [No rigidity or guarding] EXTREMITIES: Normal range of motion. [No edema.] SKIN: Warm, dry, no rash. NEURO: [No focal deficits]. Alert and oriented [x3.] PSYCH: [Normal mood and affect.] Course Vital Signs Vital signs: Vital Signs Temperature 36.8 C 03/26/25 20:10 Pulse Rate 91 03/26/25 20:10 Blood Pressure 149/77 H 03/26/25 20:10 Pulse Oximetry 97 03/26/25 20:10 Temperature 36.9 C 03/27/25 00:00 Pulse Rate 73 03/27/25 00:16 Respiratory Rate 16 03/27/25 00:16 Blood Pressure 137/87 03/27/25 00:16 Pulse Oximetry 95 03/27/25 00:16 Oxygen Delivery Room Air 03/27/25 00:16 MDM - Arrhythmia/Palpitations MDM Narrative Medical decision making narrative: 60-year-old male with a past medical history including paroxysmal atrial fibrillation on metoprolol and flecainide as well as baby aspirin for anticoagulation. Patient presents to the emergency department today as he was having episodes of palpitations today that started around 4:00 p.m. and lasted for several hours prior to being subsiding. [place] palpitations and elevated heart rate but not significantly elevated above 100 beats per minute. No fever chills. Had some substernal chest pain also resolved. No difficulty breathing, nausea, vomiting or back pain. Was otherwise in his normal state of health. Follows regularly with wind farm electrical systems designer Dr. Arias who is titrating his flecainide and metoprolol for his paroxysmal AFib. Patient states he also has a history of anxiety and feels like this could have been an anxiety attack as he gets very anxious about his health and heart history. Was otherwise in his normal state of health. Patient is overall very well-appearing not any acute distress. Ambulatory with a steady gait. Normal vital signs with any tachycardia, fever, hypoxia or blood pressure concerns. Strong symmetric pulses with regular rate and rhythm. Cardiac workup underway at this time including serial troponins, EKG and chest x-ray. Patient states he feels like he has not been doing well with hydration recently and might be a little dehydrated, but overall very well-appearing. Cardiac workup completed with negative troponins. EKG is normal sinus rhythm. EKG and chest x-ray unremarkable. Vital signs stable. No further symptoms and had complete resolution without any recurrence here in the ED. Creatinine is mildly elevated above his baseline. Informed about this and would like to offer him IV hydration but patient politely declines and does not feel like that is necessary. He will maintain hydration at home and follow-up with his wind farm electrical systems designer. His serial EKGs here unremarkable compared to his baseline without any ST segment changes or ectopy. Normal sinus rhythm. Patient given strict return precautions and after shared decision-making was safe for discharge home at this time. Medical Records Attestation: I reviewed the patient's medical records. Lab Data Attestation: I reviewed the patient's lab results. 03/26/25 20:19 03/26/25 20:19 Labs: Lab Results 03/26/25 03/27/25 Range/Units 20: 00:01 WBC 5.4 (4.5-10.0) K/mm3 RBC 4.52 L (4.6-6.20) M/mm3 Hgb 14.4 (14.0-18.0) g/dL Hct 43.1 (42.0-52.0) % MCV 95.4 (80-100) fl MCH 31.9 (26-34) pg MCHC 33.4 (32-36) g/dl RDW 13.0 (11.5-14.5) % Plt Count 192 (150-375) k/mm3 MPV 8.2 (7.4-10.4) fl Immature Gran % (Auto) 0.4 (0-0.5) % Neut % (Auto) 61.8 (45.5-73.1) % Lymph % (Auto) 22.6 (18.3-44.2) % [place] % (Auto) 11.1 H (2.6-8.5) % Eos % (Auto) 3.0 (0-4.4) % Baso % (Auto) 1.1 (0.2-1.2) % Lymph # (Auto) 1.22 (0.9-3.2) K/mm3 [place] # (Auto) 0.6 (0.1-0.6) K/mm3 Eos # (Auto) 0.2 (0-0.3) K/mm3 Baso # (Auto) 0.1 (0.0-0.1) K/mm3 Abs Immat Gran (auto) 0.02 (0.00-0.031) K/mm3 Absolute Neuts (auto) 3.4 (1.3-6.7) K/mm3 Absolute Nucleated RBC 0.000 (0.0-0.012) K/mm3 Nucleated RBC % 0.0 (0.0-0.2) % PT 12.7 (11.1-14.7) Seconds INR 0.9 APTT 25.7 (22.3-36.8) Seconds Sodium 135 L (137-145) mmol/L Potassium 3.9 (3.4-5.0) mmol/L Chloride 100 (98-107) mmol/L Carbon Dioxide 22 (22-30) mmol/L Anion Gap 13 H (4-12) mmol/L BUN 37 H (9-20) mg/dL Creatinine 1.44 H (0.7-1.3) mg/dL Estim Creat Clear Calc 63 ml/min Estimated GFR 50 L (59 - ) Glucose 125 H (65-110) mg/dL Calcium 9.2 (8.4-10.2) mg/dL Total Bilirubin 0.5 (0.2-1.3) mg/dL AST 45 (17-59) U/L ALT 42 (6-50) U/L Alkaline Phosphatase 53 (38-126) U/L Troponin I < 0.012 < 0.012 (0.000-0.034) ng/mL Total Protein 7.7 (6.3-8.2) g/dL Albumin 4.9 (3.5-5.1) g/dL Lipase 112 (23-300) U/L Discharge Plan Discharge Clinical Impression: Heart palpitations, Acute dehydration Patient Disposition: Home Condition: Stable Instructions: Antibiotic Form, Heart Palpitations (DC), Dehydration (DC) Additional Instructions: Cardiac enzymes were normal as well as your EKG here today. Your creatinine or kidney function is slightly elevated 1.4 consistent with dehydration and mild acute kidney injury. Maintain good oral hydration as this could also cause some of your symptoms. Return with any emergent concerns of recurrent symptoms otherwise follow-up with your regular primary doctor and wind farm electrical systems designer. Patient Language: Chadian Prescriptions: No Action Ultra CoQ10 75 mg capsule 100 mg PO DAILY tamsulosin 0.4 mg capsule 0.4 mg PO QHS aspirin 81 mg tablet 81 mg PO DAILY flecainide 150 mg tablet 75 mg PO Q12H metformin [Glucophage XR] 500 mg tablet extended release 24 hr 500 mg PO DAILY (DME) FreeStyle Angela 3 Sensor Device See Rx Instructions .ROUTE .COMPLEX Qty: 1 2RF Dose Instruction: Use as directed. Rx Instructions: Use as directed. Orthomolecular Methyl Cpg 1 tablet .Route DAILY Rx Instructions: Start orthomolecular Methyl CPG one tablet daily to lower homocysteine (goal under 8) and normalize B12 and folate Uma Aldrige lisinopril 10 mg tablet 10 mg PO BID Qty: 180 0RF dapagliflozin propanediol [Farxiga] 10 mg tablet 10 mg PO DAILY Qty: 90 3RF budesonide-formoterol 80-4.5 mcg/actuation HFA aerosol inhaler 2 puff inhalation DAILY Qty: 10.2 1RF albuterol sulfate 90 mcg/actuation HFA aerosol inhaler See Rx Instructions .ROUTE .COMPLEX PRN (Reason: shortness of breath or wheezing) Qty: 25.5 1RF Dose Instruction: Inhale 1 to 2 puffs by mouth every 4 to 6 hours as needed for shortness of breath or wheezing. Rx Instructions: Inhale 1 to 2 puffs by mouth every 4 to 6 hours as needed for shortness of breath or wheezing. PRN; rosuvastatin 40 mg tablet See Rx Instructions .ROUTE .COMPLEX Qty: 90 1RF Dose Instruction: Take 1 tablet by mouth at bedtime. Rx Instructions: Take 1 tablet by mouth at bedtime. metoprolol succinate 25 mg tablet extended release 24 hr See Rx Instructions .ROUTE .COMPLEX Qty: 90 2RF Dose Instruction: Take 1/2 tablet by mouth daily. Rx Instructions: Take 1 tablet by mouth daily. Follow-up/Referrals: Wellington Perez MD [Primary Care Provider, Internal Medicine] Time of Disposition: 01:24
== END 2025-03-27 01:28 | disposition home or self-care (01) ==
PROVIDERS: Emergency Provider Student in an Organized Health Care Education/Training Program; PCP Internal Medicine
DX: R00.2 Palpitations (principal); E86.0 Dehydration; I48.0 Paroxysmal atrial fibrillation; Z79.01 Long term (current) use of anticoagulants; Z79.82 Long term (current) use of aspirin; E78.5 Hyperlipidemia, unspecified; E11.9 Type 2 diabetes mellitus without complications; I10 Essential (primary) hypertension
CPT/HCPCS: 36415; 71046; 80053; 83690; 84484; 85025; 85610; 85730; 93005; 99284